=== PATIENT | male | born 1950 | race Caucasian/White ===

== ENCOUNTER 2016-06-19 08:21 | Outpatient (CLI) | payer MEDICARE ==
[~2016-06-19] VITALS: Ht 170.2 cm; Wt 99.8 kg
--- OUTSIDE RECORDS SUMMARY | 2016-06-19 08:24 | XMS REPORT | Continuity of Care Document ---
Author Author [facility] Organization [facility] Address Unknown Phone Unavailable Allergies Active Description Code Type Severity Reaction Onset Reported/Identified Relationship to Patient Clinical Status Yes No Known Drug Allergies [id number] Drug Allergy Unknown N/ A 03/20/2011 Medications Problems Date Dx Coded Attending Type Code Diagnosis Diagnosed By 09/29/2013 NE RUEDA MD Ot 278.00 OBESITY, NOS 09/29/2013 NE RUEDA MD Ot 719.41 JOINT PAIN-SHLDER 09/29/2013 NE RUEDA MD Ot 721.0 CERVICAL SPONDYLOSIS 09/29/2013 NE RUEDA MD Ot 721.3 LUMBOSACRAL SPONDYLOSIS 09/29/2013 NE RUEDA MD Ot 722.52 LUMB/LUMBOSAC DISC DEGEN 09/29/2013 NE RUEDA MD Ot V58.69 OTH MED,LT,CURRENT USE 09/29/2013 NE RUEDA MD Ot V85.33 BODY MASS INDEX 33.0-33.9, ADULT 06/28/2014 NE RUEDA MD Ot 724.2 09/06/2014 NADJA SHARIF MD Ot 723.1 09/06/2014 NE RUEDA MD Ot 721.0 09/06/2014 NE RUEDA MD Ot 721.3 09/06/2014 NE RUEDA MD Ot 722.4 09/06/2014 NE RUEDA MD Ot 722.52 09/06/2014 NE RUEDA MD Ot 729.1 09/06/2014 NE RUEDA MD Ot V58.69 09/06/2014 NE RUEDA MD Ot 724.2 09/26/2014 NE RUEDA MD Ot 719.46 10/08/2014 NE RUEDA MD Ot 719.46 02/22/2015 NE RUEDA MD Ot M47.812 SPONDYLOSIS W/O MYELOPATHY OR RADICULOPA 02/22/2015 NE RUEDA MD Ot M47.816 SPONDYLOSIS W/O MYELOPATHY OR RADICULOPA 06/27/2015 NADJA SHARIF MD Ot J32.9 06/27/2015 NADJA SHARIF MD Ot R42 06/27/2015 NADJA SHARIF MD Ot R51 07/08/2015 NADJA SHARIF MD Ot J32.9 07/08/2015 NADJA SHARIF MD Ot R42 07/08/2015 NADJA SHARIF MD Ot R51 01/03/2016 NADJA SHARIF MD Ot 723.1 CERVICALGIA 01/03/2016 NE RUEDA MD Ot 721.0 CERVICAL SPONDYLOSIS 01/03/2016 NE RUEDA MD Ot 721.3 LUMBOSACRAL SPONDYLOSIS 01/03/2016 NE RUEDA MD Ot 722.4 CERVICAL DISC DEGEN 01/03/2016 NE RUEDA MD Ot 722.52 LUMB/LUMBOSAC DISC DEGEN 01/03/2016 NE RUEDA MD Ot 729.1 MYALGIA AND MYOSITIS NOS 01/03/2016 NE RUEDA MD Ot V58.69 OTH MED,LT,CURRENT USE 01/03/2016 NE RUEDA MD Ot 724.2 LUMBAGO 01/03/2016 NE RUEDA MD Ot 719.46 JOINT PAIN-L/LEG 01/03/2016 NADJA SHARIF MD Ot J32.9 CHRONIC SINUSITIS, UNSPECIFIED 01/03/2016 NADJA SHARIF MD Ot R42 DIZZINESS AND GIDDINESS 01/03/2016 NADJA SHARIF MD Ot R51 HEADACHE 01/03/2016 NE RUEDA MD Ot M47.812 SPONDYLOSIS W/O MYELOPATHY OR RADICULOPA 01/03/2016 NE RUEDA MD Ot M47.816 SPONDYLOSIS W/O MYELOPATHY OR RADICULOPA 01/03/2016 NE RUEDA MD Ot Z79.899 OTHER RESIDENTIAL (CURRENT) DRUG THERAPY 01/16/2016 NE RUEDA MD Ot M47.812 SPONDYLOSIS W/O MYELOPATHY OR RADICULOPA 01/16/2016 NE RUEDA MD Ot M47.816 SPONDYLOSIS W/O MYELOPATHY OR RADICULOPA 01/16/2016 NE RUEDA MD Ot Z79.899 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 Visit Date/Time Discharge Status Pt. Type Provider Facility Loc./Unit Complaint [id number] 01/03/2016 06:51:00 2015 07:47:00 DIS Outpatient NE RUEDA MD [facility] CARD SPONDYLOSIS W/O MYELOPATHY OR RADICULOPATHY LUMBAR [id number] 02/22/2015 07:41:00 2014 08:21:00 DIS Outpatient NE RUEDA MD [facility] SPONDYLOSIS W/O MYELOPATHY OR RADICULOPATHY LUMBAR [id number] 09/06/2014 11:41:00 2014 23:59:59 CLS Outpatient NE RUEDA MD [facility] RAD L KNEE PAIN [id number] 09/29/2013 07:42:00 2013 08:33:00 DIS Outpatient NE RUEDA MD [facility] LUMBAR SPONDYLOSIS [id number] 09/26/2013 09:44:00 2013 23:59:59 CLS Outpatient NE RUEDA MD [facility] RAD LUMBAGO [id number] 06/16/2013 07:59:00 2013 23:59:59 CLS Outpatient NE RUEDA MD [facility] CARD CERVICAL DDD [id number] 05/09/2013 08:57:00 2013 23:59:59 CLS Outpatient NADJA SHARIF MD [facility] RAD NECK PAIN, NUMBNESS TINGLING LT HAND [id number] 06/19/2016 08:21:00 ACT Outpatient NE RUEDA MD [facility] CARD SPONDYLOSIS [id number] 06/07/2015 07:16:00 ACT Outpatient NADJA SHARIF MD [facility] RAD HEADACHES,DIZZINESS,NECK PAIN
[2016-06-19] MEDS ORDERED: TRIAMCINOLONE ACET (KENALOG-40) 40 MG/ML 1 ML VIAL ONE (08:55)
[2016-06-19] MEDS ORDERED: BUPIVACAINE 0.5% 30 ML (SENSORCAINE) VIAL ONE (08:55)
[2016-06-19] MEDS ORDERED: LIDOCAINE 1% INJ 20 ML (XYLOCAINE) VIAL ONE (08:55)
[2016-06-19 09:01] VITALS: BP 182/92
[2016-06-19 09:46] VITALS: BP 189/104
--- NOTE | 2016-06-19 11:58 | Pain Medicine-Procedure ---
Procedure Pre-Op/Post-Op Diagnosis Diagnosis: spondylosis without myelopathy, lumbar Indications for Operation Low back pain Attending Surgeon Jay Procedure Date of Service: Jun 19, 2016 Procedure: Fluoroscopic guided left Medial Branch Block of L3 to sacral ala PROCEDURE IN DETAIL: After obtaining informed consent from the patient, the patient's chart was reviewed. The patient was then brought to the procedure room and placed in the prone position. A time out was performed. The back was prepped with antiseptic solution and under fluoroscopic guidance the patient's sacral ala on the left side was identified. 2 mL's of 1% Lidocaine was used to anesthetized the skin over the sacral ala and a 22 gauge 3.5 inch needle was advanced towards the target until bone was contacted. The junction of the superior articular processes and the transverse processes at L3-L5 on the left were then identified and the skin overlying these targets was anesthetized with 1% lidocaine. Next a 22 gauge 3.5 inch needle was inserted through the skin to the level of the lumbar medial branches under radiographic guidance. Next, after negative aspiration, a mixture of 2 mL's Bupivacaine 0.5% and 80 mg Kenalog was injected in 4 equal aliquots. CSF was negative, Paresthesia was negative, Heme was negative. All needles were then flushed with 1% lidocaine and then removed. Band-Aids were applied to all the sites and the patient tolerated the procedure well and was taken to the recovery area in stable condition. Patient was discharged to home in stable condition with no new neurologic deficits. Complications None NE RUEDA MD Jun 19, 2016 11:58 am
== END 2016-06-19 09:49 | disposition home or self-care (01) ==
LOC: CARD 08:21
PROVIDERS: ATTEND Pain Medicine Pain Medicine
DX: M47.816 Spondylosis without myelopathy or radiculopathy, lumbar region (principal); Z79.899 Other long term (current) drug therapy
CPT/HCPCS: 64493; 64494; 64495

== ENCOUNTER 2017-01-07 12:36 | Outpatient (CLI) | payer MEDICARE ==
[~2017-01-07] VITALS: Ht 172.7 cm; Wt 99.8 kg
[2017-01-07] MEDS ORDERED: methylPREDNISolone 80 MG/ML (DEPO MEDROL) VIAL ONE (12:42)
[2017-01-07 13:00] VITALS: BP 162/106
[2017-01-07] MEDS ORDERED: TRIAMCINOLONE ACET (KENALOG-40) 40 MG/ML 1 ML VIAL IM ONE (13:30)
[2017-01-07] MEDS ORDERED: BUPIVACAINE 0.25% 30 ML (SENSORCAINE) VIAL INJ ONE (13:30)
[2017-01-07 13:49] VITALS: BP 168/90
--- NOTE | 2017-01-14 17:51 | OPERATIVE REPORT ---
DATE OF SERVICE: 01/07/2017 DIAGNOSIS: Lumbar spondylosis. PROCEDURE: Fluoroscopic-guided facet medial branch block L5-S1, left-sided. PROCEDURE IN DETAIL: After obtaining informed consent from the patient, the patient's chart was reviewed. The patient was then brought to the procedure room and placed in prone position. Time-out was performed. The area and the left neck, upper back, lower back was prepped with antiseptic solution and under fluoroscopic guidance, the patient's L5-S1 area was examined and the facet joints listed above were identified. L5-S1 was identified under fluoroscopy. A 22-guage 3-1/2 inch spinal needle was inserted and advanced under fluoroscopy down to the area where the pedicle and the transverse process meet and approximately 1 mL of 1% lidocaine was injected at this level. This was then repeated for the remainder of the levels stated above. Afterwards, the needle was removed. Band-Aids were applied to all sites and the patient tolerated the procedure well and was taken to the recovery area in stable condition. COMPLICATIONS: None. Job ID: [id number] DocumentID: [id number] Dictated Date: 01/12/2017 13:15:19 A Auxiliary Date: 01/13/2017 05:11:04 Dictated By: SHREE BACA DO
--- NOTE | 2017-01-19 15:32 | OPERATIVE REPORT ---
DATE OF SERVICE: 01/07/2017 DIAGNOSIS: Lumbar spondylosis. PROCEDURE: Fluoroscopic-guided facet medial branch block on the left side L3 through S1.. PROCEDURE IN DETAIL: After obtaining informed consent from the patient, the patient's chart was reviewed. The patient was then brought to the procedure room and placed in prone position. Time-out was performed. The area and the neck, upper back, lower back was prepped with antiseptic solution and under fluoroscopic guidance, the patient's left side L3 through S1 area was examined and the facet joints listed above were identified. Left side L3 through S1 was identified under fluoroscopy. A 22-gauge 3-1/2 inch spinal needle was inserted and advanced under fluoroscopy down to the area where the pedicle and the transverse process meet and approximately 1 mL of 1% lidocaine was injected at this level. This was then repeated for the remainder of the levels stated above. Afterwards, the needle was removed. Band-Aids were applied to all sites and the patient tolerated the procedure well and was taken to the recovery area in stable condition. COMPLICATIONS: None. (00:58) facet joint nerve block on the left side L3 through S1. Job ID: [id number] DocumentID: [id number] Dictated Date: 01/12/2017 13:13:56 Weighmaster Date: 01/14/2017 13:34:15 Dictated By: SHREE BACA DO
== END 2017-01-07 13:50 ==
LOC: CARD 12:36
PROVIDERS: ATTEND Pain Medicine Interventional Pain Medicine
DX: M54.16 Radiculopathy, lumbar region (principal); G89.4 Chronic pain syndrome
CPT/HCPCS: 62323

== ENCOUNTER → 2017-10-18 | Outpatient (CLI) | payer MEDICARE, OTHER ==
[~2017-10-18] MED LIST: IOHEXOL 350 MG/ML 100 ML (OMNIPAQUE 350) VIAL IV ONE; NS 250 ML (IVPB) BAG IV ONE
--- NOTE | 2017-10-18 14:41 | Diagnostic Imaging Report ---
PROCEDURE: CT chest with contrast only. TECHNIQUE: Multiple contiguous axial images were obtained through the chest after administration of intravenous contrast. INDICATION: Persistent cough and asbestos exposure. COMPARISON: No prior CT chest is available for comparison. FINDINGS: No axillary lymphadenopathy is identified. No definite mediastinal or hilar lymphadenopathy is seen. No pericardial or pleural fluid is seen. No definite pleural thickening, pleural-based mass, or calcified pleural plaquing is seen to suggest asbestos-related pleural disease. The central airways are unremarkable. Parenchymal evaluation demonstrates a tiny subpleural nodule in the superior segment of the left lower lobe, image 31, measuring 3 mm. There is calcified granuloma in the right lower lobe. No parenchymal mass or infiltrate is seen. The upper abdomen demonstrates generalized low density throughout the liver, suggestive of hepatic steatosis. The bony structures are unremarkable. IMPRESSION: Essentially unremarkable CT of the chest. No parenchymal mass or thoracic lymphadenopathy is seen. No definite asbestos-related pleural findings are identified. Dictated by: Dictated on workstation # [id number]
== END ==
LOC: RAD 13:25
PROVIDERS: ATTEND Family Medicine
DX: R05 Cough (principal); Z77.090 Contact with and (suspected) exposure to asbestos
CPT/HCPCS: 71260

== ENCOUNTER → 2020-06-17 | Outpatient (CLI) | payer MEDICARE, OTHER ==
--- NOTE | 2020-06-17 14:02 | Diagnostic Imaging Report ---
PROCEDURE: CT sinuses without contrast TECHNIQUE: Multiple contiguous axial images were obtained through the sinuses without the use of intravenous contrast. Coronal and sagittal reformations were then performed. Auto Exposure Controls were utilized during the CT exam to meet ALARA standards for radiation dose reduction. INDICATION: Chronic sinusitis. FINDINGS: There is moderate mucosal thickening in the left maxillary sinus. The right maxillary sinus is clear. The sphenoid sinus is clear. The ethmoid air cells are clear. The frontal sinus is clear. The ostiomeatal complexes are widely patent. There is some tortuosity of the nasal septum. There are no marii bullosa. The mastoid air cells are clear. The nasopharyngeal soft tissues are symmetrical without mass effect. The parotid glands are unremarkable. IMPRESSION: Mucosal thickening in the left maxillary sinus; otherwise, unremarkable. Dictated by: Dictated on workstation # [id number]
== END ==
LOC: RAD 13:20
PROVIDERS: ATTEND Otolaryngology Otolaryngology/Facial Plastic Surgery
DX: J34.89 Other specified disorders of nose and nasal sinuses (principal); J32.9 Chronic sinusitis, unspecified
CPT/HCPCS: 70486

== ENCOUNTER 2021-05-18 13:45 | Emergency (ER) | payer MEDICARE, OTHER ==
[~2021-05-18] VITALS: Ht 170 cm; Wt 81.8 kg
[2021-05-18] MEDS ORDERED: fentaNYL INJ 100 MCG/2 ML AMP IVP STA (14:26)
[2021-05-18] MEDS ORDERED: TETANUS,DIPTH,PERTUSS P/F (BOOSTRIX) 0.5 ML VIAL IM ONE (14:30)
[2021-05-18 14:50] LABS: BASOPHILS # (AUTO) 0.1 10^3/uL (0.0-0.1); BASOPHILS % (AUTO) 1 % (0-10); EOSINOPHILS # (AUTO) 0.2 10^3/uL (0.0-0.3); EOSINOPHILS % (AUTO) 2 % (0-10); HEMATOCRIT 43 % (40-54); HEMOGLOBIN 14.4 g/dL (13.3-17.7); LYMPHOCYTES # (AUTO) 2.1 10^3/uL (1.0-4.0); LYMPHOCYTES % (AUTO) 22 % (12-44); MEAN CORPUSCULAR HEMOGLOBIN 30 pg (25-34); MEAN CORPUSCULAR HGB CONC 34 g/dL (32-36); MEAN CORPUSCULAR VOLUME 89 fL (80-99); MEAN PLATELET VOLUME 10.2 fL (9.0-12.2); MONOCYTES # (AUTO) 0.8 10^3/uL (0.0-1.0); MONOCYTES % (AUTO) 9 % (0-12); NEUTROPHILS # (AUTO) 6.1 10^3/uL (1.8-7.8); NEUTROPHILS % (AUTO) 66 % (42-75); PLATELET COUNT 208 10^3/uL (130-400); WHITE BLOOD COUNT 9.3 10^3/uL (4.3-11.0)
[2021-05-18 15:00] LABS: ALBUMIN 4.1 GM/DL (3.2-4.5)
[2021-05-18 15:01] LABS: POTASSIUM 3.9 MMOL/L (3.6-5.0)
[2021-05-18 15:02] LABS: CALCIUM 8.9 MG/DL (8.5-10.1)
[2021-05-18 15:03] LABS: TOTAL PROTEIN 7.4 GM/DL (6.4-8.2)
[2021-05-18 15:05] LABS: BILIRUBIN,TOTAL 0.5 MG/DL (0.1-1.0)
[2021-05-18 15:07] LABS: CREATININE SERUM 0.82 MG/DL (0.60-1.30)
[2021-05-18] MEDS ORDERED: HYDROmorphone 2 MG/ML VIAL (DILAUDID) IV STA (15:27)
[2021-05-18] MEDS ORDERED: ONDANSETRON 4 MG/2 ML (SDV) Z0FRAN IVP STA (15:50)
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
[2021-05-18] MEDS ORDERED: ceFAZolin 2 GM IV Premixed 50 ML IV STA (16:10)
--- NOTE | 2021-05-18 16:10 | ED General ---
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 HAVING DOUBLE VISION. (MARCELLE STRICKLAND) History of Present Illness Date Seen by Provider: May 18, 2021 Time Seen by Provider: 14:10 Initial Comments 70 year old male was hit by branch, while assisting his family with trees. He reports being hit on the left side of the face, knocking him to the ground. No LOC. Denies n/v. Reports changes in vision to left eye, blurry at times. Chronic history of neck and back pain, no change in those symptoms. He arrived via private car. Unsure of last tetanus. No difficulty breathing, can use both nares. Has fentanyl patch on for the chronic pain, applied yesterday. Timing/Duration: 1 Hour Modifying Factors: improves with Rest (MARCELLE STRICKLAND) Allergies and Home Medications Allergies Coded Allergies: No Known Drug Allergies (Unverified , 03/20/11) Patient Home Medication List Home Medication List Reviewed: Yes (MARCELLE STRICKLAND) Review of Systems Review of Systems Constitutional: no symptoms reported, see HPI EENTM: see HPI, eye pain (left), nose pain, other (multiple abrasions to left face and eye, superficial); No vision loss, No dental problems, No mouth pain, No mouth swelling, No epistaxis, No nose congestion, No throat pain, No throat swelling Respiratory: no symptoms reported, see HPI Cardiovascular: no symptoms reported, see HPI Gastrointestinal: no symptoms reported, see HPI (MARCELLE STRICKLAND) All Other Systems Reviewed Negative Unless Noted: Yes (MARCELLE STRICKLAND) Past Ugraain-Hewuce-Wjiktu Hx Patient Social History Tobacco Use?: No Substance use?: No Pt feels they are or have been: No (MARCELLE STRICKLAND) Immunizations Up To Date First/Initial COVID19 Vaccinat: 06/01 Second COVID19 Vaccination Mina: 06/27 COVID19 Vaccine Searchlight Operator: LI (MARCELLE STRICKLAND) Family Medical History Reviewed Nursing Family Hx (MARCELLE STRICKLAND) Physical Exam Vital Signs Vital Signs - First Documented 05/18/21 05/18/21 14:03 17:40 Temp 36.4 Pulse 66 Resp 18 B/P (MAP) 198/88 (124) Pulse Ox 98 O2 Delivery Room Air (JULIO C DUENAS MD) Vital Signs Capillary Refill : Less Than 3 Seconds (MARCELLE STRICKLAND) Height, Weight, BMI Height: 5'8.00" Weight: 220lbs. 0.0oz. 99.520575hm; 28.00 BMI Method: General Appearance: WD/WN, Moderate Distress Eyes: Left Eye Lid Inflammation, Left Eye Other (trace erythema to conjunctiva, no hyphema); Bilateral Eye PERRL, Bilateral Eye EOMI HEENT: PERRL/EOMI, TMs Normal, Pharynx Normal, Moist Mucous Membranes Neck: Full Range of Motion, Normal Inspection, Non Tender, Supple Respiratory: Chest Non Tender, Lungs Clear, Normal Breath Sounds Cardiovascular: Regular Rate, Rhythm, No JVD, No Murmur, Normal Peripheral Pulses Gastrointestinal: Normal Bowel Sounds, Non Tender, Soft Extremity: Normal Capillary Refill, Normal Inspection, Normal Range of Motion, No Calf Tenderness, No Pedal Edema Neurologic/Psychiatric: Alert, Oriented x3, No Motor/Sensory Deficits, Normal Mood/Affect, slab stripper II-XII Norm as Tested Skin: Normal Color, Warm/Dry (MARCELLE STRICKLAND) Progress/Results/Core Measures Suspected Sepsis SIRS Temperature: Pulse: 66 Respiratory Rate: 18 Laboratory Tests 05/18/21 14:40: White Blood Count 9.3 Blood Pressure 198 /88 Mean: 124 Laboratory Tests 05/18/21 14:40: Creatinine 0.82, Platelet Count 208, Total Bilirubin 0.5 (MARCELLE STRICKLAND) Results/Orders Lab Results Laboratory Tests Test 05/18/21 14:40 Range/Units White Blood Count 9.3 4.3-11.0 10^3/uL Red Blood Count 4.80 4.30-5.52 10^6/uL Hemoglobin 14.4 13.3-17.7 g/dL Hematocrit 43 40-54 % Mean Corpuscular Volume 89 80-99 fL Mean Corpuscular Hemoglobin 30 25-34 pg Mean Corpuscular Hemoglobin Concent 34 32-36 g/dL Red Cell Distribution Width 12.6 10.0-14.5 % Platelet Count 208 130-400 10^3/uL Mean Platelet Volume 10.2 9.0-12.2 fL Immature Granulocyte % (Auto) 0 % Neutrophils (%) (Auto) 66 42-75 % Lymphocytes (%) (Auto) 22 12-44 % Monocytes (%) (Auto) 9 0-12 % Eosinophils (%) (Auto) 2 0-10 % Basophils (%) (Auto) 1 0-10 % Neutrophils # (Auto) 6.1 1.8-7.8 10^3/uL Lymphocytes # (Auto) 2.1 1.0-4.0 10^3/uL Monocytes # (Auto) 0.8 0.0-1.0 10^3/uL Eosinophils # (Auto) 0.2 0.0-0.3 10^3/uL Basophils # (Auto) 0.1 0.0-0.1 10^3/uL Immature Granulocyte # (Auto) 0.0 0.0-0.1 10^3/uL Sodium Level 140 135-145 MMOL/L Potassium Level 3.9 3.6-5.0 MMOL/L Chloride Level 104 98-107 MMOL/L Carbon Dioxide Level 23 21-32 MMOL/L Anion Gap 13 5-14 MMOL/L Blood Urea Nitrogen 13 7-18 MG/DL Creatinine 0.82 0.60-1.30 MG/DL Estimat Glomerular Filtration Rate 95 BUN/Creatinine Ratio 16 Glucose Level 101 70-105 MG/DL Calcium Level 8.9 8.5-10.1 MG/DL Corrected Calcium 8.8 8.5-10.1 MG/DL Total Bilirubin 0.5 0.1-1.0 MG/DL Aspartate Amino Transf (AST/SGOT) 33 5-34 U/L Alanine Aminotransferase (ALT/SGPT) 20 0-55 U/L Alkaline Phosphatase 60 40-136 U/L Total Protein 7.4 6.4-8.2 GM/DL Albumin 4.1 3.2-4.5 GM/DL (JULIO C DUENAS MD) Medications Given in ED Current Medications Medications Dose Ordered Sig/Keshawn Route Start Time Stop Time Status Last Admin Dose Admin Diphtheria/ Tetanus/Acell Pertussis 0.5 ml ONCE ONCE IM 05/18/21 14:30 05/18/21 14:31 DC 05/18/21 14:49 0.5 ML Oxycodone/ Acetaminophen 1 ea Q4H PRN PO 05/18/21 17:30 2/13/22 17:49 DC 05/18/21 17:35 1 EA (JULIO C DUENAS MD) Vital Signs/I&O 05/18/21 05/18/21 14:03 17:40 Temp 36.4 Pulse 66 52 Resp 18 18 B/P (MAP) 198/88 (124) 200/90 Pulse Ox 98 96 O2 Delivery Room Air (JULIO C DUENAS MD) Vital Signs/I&O Capillary Refill : Less Than 3 Seconds (MARCELLE STRICKLAND) Blood Pressure Mean: 124 Progress Note : Time: 14:10 Progress Note patient seen and evaluated, will give Dilaudid for pain and tetanus booster. Ice to face and eye on left. 1500 CT shows multiple orbital and nasal fractures. Continues to have slightly blurry vision but no vision loss. EOMI, but with some discomfort on the left eye. Dr. Wilson, trauma doctor notified of patient. [address] Damon, willing to see patient for fractures but would like him evaluated by Opthamology. Zofran 8 mg IV for nausea. [address] Lopez at [place], willing to see patient but wants to assure fracture management is planned with ENT or Dr. Damon. Patient would prefer to see Opthamology and ENT at [place]. 1615 noted subconjunctival hemorrhage on the left eye, no hyphema developing over the pupil. Significant swelling of the left eye and cheek. Continues to have slight blurred vision on the left but otherwise intact. Patient can move the eye in all directions but with some pain with superior motion. PERRL. [address] Herrera ENT, patient can be seen at her office, have patient call tomorrow. [address] Lopez, will see at his office in [place] for eye exam at [address] Wilson agreeable with plan of care. 1730 discharge instructions and plan of care discussed with the patient and his they are agreeable with this and will see Dr. Lopez immediately at his office in [place]. Copies of ED reports sent with patient for Dr. Lopez. CT of head and maxiofacial clouded to [place]. (MARCELLE STRICKLAND) Diagnostic Imaging Diagonstic Imaging: CT Plain Films/CT/US/NM/MRI: facial bones, head Comments NAME: DANIELA CASTRO [facility] REC#: [id number] PT STATUS: REG ER : 1950 PHYSICIAN: MARCELLE STRICKLAND ADMIT DATE: 05/18/21/ER Draft Date of Exam:05/18/21 CT HEAD/MAXILLOFACIAL WO PROCEDURE: CT head and maxillofacial without contrast. TECHNIQUE: Multiple contiguous axial images were obtained through the head and facial bones without the use of intravenous contrast. Auto Exposure Controls were utilized during the CT exam to meet ALARA standards for radiation dose reduction. INDICATION: Trauma, hit in face, pain. COMPARISON: 06/17/2020 and 06/07/2015. FINDINGS: Mild atrophy. No intracranial hemorrhage. No intracranial mass, mass effect, midline shift, herniation, hydrocephalus or extra-axial fluid collection. Mild background chronic small vessel white matter ischemic disease. No definite CT evidence of an acute ischemic infarction. Acute appearing bilateral nasal bone fractures, minimally displaced and angulated, particularly on the left. Minimal fracturing of the left lamina papyracea. The right lamina papyracea appears intact. Mild partial opacification of some left ethmoidal air cells. Fracturing of the lateral wall of the left orbit is identified. Fracturing of the left inferior orbital rim and orbital floor is noted. Inferior displacement of some fracture fragments into the left maxillary sinus is noted. This is associated with soft tissue gas within the left orbit. The inferior left rectus musculature does not extend into the left maxillary sinus. Comminuted fracturing of the left zygomatic arch, not significantly displaced. Acute comminuted and depressed fracturing involving the anterior and lateral wall of the left maxillary sinus. Near-complete opacification of the left maxillary sinus is noted with associated hyperdense contents. Fracturing involving the medial wall of the left maxillary sinus. Rightward nasal septal deviation. No temporomandibular joint dislocation. Visualized portions of the pterygoids are intact. Degenerative changes within the cervical spine. Left-sided exophthalmus. Left periorbital soft tissue swelling. Several small hyperdensities are identified anterior and inferior to the left globe. IMPRESSION: Extensive left-sided facial fractures, as described above, including the lateral and inferior orbital peralta as well as all peralta of the left maxillary sinus and the left zygomatic arch. No definite musculature from the left orbit extending to the left maxillary sinus. No acute intracranial abnormality. Left-sided exophthalmus secondary to the hematoma and soft tissue gas within the left orbit. Tiny hyperdensities anterior and inferior to the left globe. Recommend direct visualization for tiny superficial foreign bodies. Bilateral nasal bone fractures. Dictated on workstation # [id number] Dict: 05/18/21 1534 Trans: 05/18/21 1559 [facility] [id number] Interpreted by: MAXINE PEREZ MD Electronically signed by: Reviewed: Reviewed by Me (MARCELLE STRICKLAND) Departure Impression Primary Impression: Facial trauma Qualified Codes: S09.93XA - Unspecified injury of face, initial encounter Additional Impressions: Orbital fracture Qualified Codes: S02.85XB - Fracture of orbit, unspecified, initial encounte r for open fracture Zygomatic fracture, left side, initial encounter for closed fracture Subconjunctival hemorrhage of left eye Disposition: HOME, SELF-CARE Condition: Critical Departure-Patient Inst. Decision time for Depature: 17:00 (MARCELLE STRICKLAND) Referrals: SABRINA ANN MD (PCP/Family) Primary Care Physician Add. Discharge Instructions: Leave dressing in place, go to [address] [place] [address], across from [facility]. It is the [facility], it has a video screen on the building. Dr. Lopez will be there to see you at 6:15 PM on the East door. It is a 2 story stone building. Rest, no aggressive activity. On Wednesday call Dr. Herrera's office at [phone] for an appointment. Use Pain medication, as prescribed. Take Zofran for nausea/vomiting. Follow up per Dr. Herrera and Dr. Lopez. All discharge instructions reviewed with patient and/or family. Voiced understanding. ATTENDING PHYSICIAN NOTE: I was physically present as attending physician in the emergency department during the care of this patient. I discussed the case in brief with Marcelle STRICKLAND NP. I agree with the pursuit of specialty consultation with ENT and/or maxillofacial surgery. I was not otherwise directly involved in the decision making or delivery of care for this patient. (JULIO C DUENAS MD) Copy Copies To 1: SABRINA ANN MD, AMY ARNP May 18, 2021 16:10 JULIO C DUENAS MD May 18, 2021 19:38
[2021-05-18] MEDS ORDERED: HYDROmorphone 2 MG/ML VIAL (DILAUDID) IVP STA (16:26)
[2021-05-18] MEDS ORDERED: morphine INJ 4 MG/ML 1 ML (VIAL/SYRINGE) IVP STA (17:21)
[2021-05-18] MEDS ORDERED: RX-ONDANSETRON 4 MG ODT (ZOFRAN) PPK #4 PO STA (17:21)
[2021-05-18] MEDS ORDERED: morphine INJ 10 MG/ML 1ML (SYR OR VIAL) IVP STA (17:27)
[2021-05-18] MEDS ORDERED: RX-OXYCODONE/APAP 5-325 MG #4 TAB PK PO PRN (17:30)
[2021-05-18 17:40] VITALS: BP 200/90
== END 2021-05-18 17:40 | disposition home or self-care (01) ==
LOC: EDUNIT# 13:45 → ER 13:48
DX: S02.85XA Fracture of orbit, unspecified, initial encounter for closed fracture (principal); S02.40FA Zygomatic fracture, left side, initial encounter for closed fracture; H11.32 Conjunctival hemorrhage, left eye; Z23 Encounter for immunization; W22.8XXA Striking against or struck by other objects, initial encounter
CPT/HCPCS: 36415; 70450; 70486; 80053; 85025; 90715

== ENCOUNTER 2022-05-30 15:28 | Inpatient (IN) | payer MEDICARE, OTHER ==
[~2022-05-30] VITALS: Ht 170.2 cm; Wt 81.8 kg
--- NOTE | 2022-05-30 16:15 | ED General ---
General Chief Complaint: General Problems/Pain Stated Complaint: LOWER BACK PAIN | LEG PAIN | RETAINING FLUID Nursing Triage Note: PT IS SCHEDULED WEDNESDAY FOR AN ECHO, CC OF FLUID RETENTION AND LOW BACK PAIN, PAIN IN LEGS AND HIPS,HAS SPINAL STEONSIS. Source of Information: Patient Exam Limitations: No Limitations History of Present Illness Date Seen by Provider: May 30, 2022 Time Seen by Provider: 15:35 Initial Comments Here with report of significant low back pain and pain in his legs. Does have history of spinal stenosis and fluid retention. He is currently on Bumex 1 mg daily and he is getting worse fluid retention. He is on fentanyl patch 75 mcg every 3 days as well as breakthrough hydrocodone tablets and that is not helping. He arrives with his who helps care for him. Patient does have Parkinson's disease. She states that he has had a terrible couple of days. He does follow with Dr. Ann and she reports that he has done labs recently but she is not sure of the results. She reports have not been called of anything significantly bad though. Patient does not have a history tutor. He does follow with pain control. She reports that he did get an injection in Dr. Ann's office the other day that did not help. She is worried about changing color of the patient's legs to more red and the increasing swelling. Patient reports he has swelling all the way up to the groin on both sides. Swelling is even bilateral. Denies chest pain or breathing problems. Denies fever or chills. reports the patient is scheduled for echocardiogram this coming week. Timing/Duration: 3-4 Days, Getting Worse Severity: Moderate Associated Systoms: No Chest Pain, No Cough, No Fever/Chills, No Nausea/Vomiting, No Shortness of Air; Weakness Allergies and Home Medications Allergies Coded Allergies: No Known Drug Allergies (Unverified , 03/20/11) Patient Home Medication List Home Medication List Reviewed: Yes Review of Systems Review of Systems Constitutional: see HPI; No fever EENTM: No nose congestion, No throat pain Respiratory: cough; No short of breath Cardiovascular: No chest pain; edema Gastrointestinal: No abdominal pain, No nausea, No vomiting Genitourinary: no symptoms reported Musculoskeletal: back pain, joint pain, muscle pain Skin: change in color; No lesions Psychiatric/Neurological: Denies Numbness; Weakness Past Fgewwjk-Pcfwlz-Opemba Hx Patient Social History Tobacco Use?: No Substance use?: No Alcohol Use?: No Immunizations Up To Date First/Initial COVID19 Vaccinat: 06/01 Second COVID19 Vaccination Mina: 06/27 Third COVID19 Vaccination Date: 01/24 Past Medical History Surgery/Hospitalization HX: SPINAL STENOSIS, FLUID RETENTION, PARKINSONS, FACIAL TRAUMA, NERVE ENDING IN BACK BURNED OFF Surgeries: Yes Orthopedic Respiratory: No Cardiac: Yes Chronic Edema/Swelling, Hypertension Neurological: Yes Neuropathy, Parkinson's Disease Musculoskeletal: Yes Back Injury, Chronic Back Pain Endocrine: No Hearing Impairment: Hard of Hearing Family Medical History Reviewed Nursing Family Hx No Pertinent Family Hx Physical Exam Vital Signs Vital Signs - First Documented 05/30/22 05/30/22 15:35 17:30 Temp 35.9 Pulse 95 Resp 20 B/P (MAP) 138/75 (96) Pulse Ox 99 O2 Delivery Room Air Capillary Refill : Less Than 3 Seconds Height, Weight, BMI Height: 5'8.00" Weight: 220lbs. 0.0oz. 99.236328in; 28.00 BMI Method: General Appearance: No Apparent Distress, WD/WN HEENT: PERRL/EOMI, Pharynx Normal Neck: Non Tender, Supple Respiratory: Lungs Clear, Normal Breath Sounds Cardiovascular: Regular Rate, Rhythm, No Murmur, Tachycardia Gastrointestinal: Non Tender, Soft Back: Decreased Range of Motion, Other (Bilateral lower back pain) Extremity: Pedal Edema (3+ up to groin bilateral), Other (Tender over all of both legs) Neurologic/Psychiatric: Alert, Oriented x3 Skin: Warm/Dry, Other (Redness and blanching to skin of legs bilateral up to level of groin) Focused Exam Lactate Level 05/30/22 16:00: Lactic Acid Level 2.91*H Lactic Acid Level Laboratory Tests Test 05/30/22 16:00 Lactic Acid Level 2.91 MMOL/L (0.50-2.00) *H Progress/Results/Core Measures Suspected Sepsis SIRS Temperature: Pulse: 95 Respiratory Rate: 20 Laboratory Tests 05/30/22 16:00: White Blood Count 12.5H Blood Pressure 138 /75 Mean: 96 05/30/22 16:00: Lactic Acid Level 2.91*H Laboratory Tests 05/30/22 16:00: Creatinine 1.18, Platelet Count 226, Total Bilirubin 0.6 Results/Orders Lab Results Laboratory Tests Test 05/30/22 16:00 Range/Units White Blood Count 12.5 H 4.3-11.0 10^3/uL Red Blood Count 4.03 L 4.30-5.52 10^6/uL Hemoglobin 11.9 L 13.3-17.7 g/dL Hematocrit 37 L 40-54 % Mean Corpuscular Volume 91 80-99 fL Mean Corpuscular Hemoglobin 30 25-34 pg Mean Corpuscular Hemoglobin Concent 32 32-36 g/dL Red Cell Distribution Width 12.4 10.0-14.5 % Platelet Count 226 130-400 10^3/uL Mean Platelet Volume 10.5 9.0-12.2 fL Immature Granulocyte % (Auto) 1 % Neutrophils (%) (Auto) 83 H 42-75 % Lymphocytes (%) (Auto) 7 L 12-44 % Monocytes (%) (Auto) 9 0-12 % Eosinophils (%) (Auto) 0 0-10 % Basophils (%) (Auto) 0 0-10 % Neutrophils # (Auto) 10.3 H 1.8-7.8 10^3/uL Lymphocytes # (Auto) 0.9 L 1.0-4.0 10^3/uL Monocytes # (Auto) 1.2 H 0.0-1.0 10^3/uL Eosinophils # (Auto) 0.0 0.0-0.3 10^3/uL Basophils # (Auto) 0.0 0.0-0.1 10^3/uL Immature Granulocyte # (Auto) 0.1 0.0-0.1 10^3/uL Neutrophils % (Manual) 86 % Lymphocytes % (Manual) 8 % Monocytes % (Manual) 4 % Basophils % (Manual) 2 % Platelet Estimate NORMAL Blood Morphology Comment NORMAL Sodium Level 136 135-145 MMOL/L Potassium Level 4.2 3.6-5.0 MMOL/L Chloride Level 98 98-107 MMOL/L Carbon Dioxide Level 24 21-32 MMOL/L Anion Gap 14 5-14 MMOL/L Blood Urea Nitrogen 34 H 7-18 MG/DL Creatinine 1.18 0.60-1.30 MG/DL Estimat Glomerular Filtration Rate 66 BUN/Creatinine Ratio 29 Glucose Level 156 H 70-105 MG/DL Lactic Acid Level 2.91 *H 0.50-2.00 MMOL/L Calcium Level 9.4 8.5-10.1 MG/DL Corrected Calcium 9.3 8.5-10.1 MG/DL Magnesium Level 2.0 1.6-2.4 MG/DL Total Bilirubin 0.6 0.1-1.0 MG/DL Aspartate Amino Transf (AST/SGOT) 18 5-34 U/L Alanine Aminotransferase (ALT/SGPT) 18 0-55 U/L Alkaline Phosphatase 72 40-136 U/L Troponin I < 0.028 <0.028 NG/ML C-Reactive Protein High Sensitivity 13.69 H 0.00-0.50 MG/DL B-Type Natriuretic Peptide 43.7 <100.0 PG/ML Total Protein 8.1 6.4-8.2 GM/DL Albumin 4.1 3.2-4.5 GM/DL Micro Results Microbiology 05/30/22 Blood Culture - Preliminary, Resulted No growth My Orders Orders - ARMANI MULLINS MD Cbc With Automated Diff (05/30/22 15:57) Comprehensive Metabolic Panel (05/30/22 15:57) Blood Culture (05/30/22 15:57) Urinalysis (05/30/22 15:57) Urine Culture (05/30/22 15:57) Chest 1 View, Ap/Pa Only (05/30/22 15:57) Ed Iv/Invasive Line Start (05/30/22 15:57) Troponin I Joe (05/30/22 15:57) O2 (05/30/22 15:57) Remove Rings In Anticipation O (05/30/22 15:57) Lactic Acid Analyzer (05/30/22 15:57) Bnp Evangeline (05/30/22 15:57) Hs C Reactive Protein (05/30/22 15:57) Magnesium (05/30/22 15:57) Manual Differential (05/30/22 16:00) Ekg Tracing (05/30/22 16:25) Hydromorphone Injection (Dilaudid Inject (05/30/22 16:30) Ceftriaxone 1 Gm Pre-Mix (Rocephin 1 Gm (05/30/22 17:19) Furosemide Injection (Lasix Injection) (05/30/22 17:20) Code/Resuscitation (2/25/23 17:41) Medications Given in ED Vital Signs/I&O 05/30/22 05/30/22 15:35 17:30 Temp 35.9 Pulse 95 84 Resp 20 18 B/P (MAP) 138/75 (96) 139/74 (95) Pulse Ox 99 O2 Delivery Room Air Capillary Refill : Less Than 3 Seconds Blood Pressure Mean: 96 Progress Note : Progress Note Seen and evaluated. IV, labs, blood cultures, lactic acid. Labs include CBC, CMP, troponin, BNP and CRP as well as magnesium. We will get chest x-ray and EKG. Monitor patient. Dilaudid 1 mg IV ordered. Differential includes cellulitis/sepsis, dependent edema, electrolyte abnormality, heart failure 1715: Chest x-ray shows no acute findings on my interpretation. See radiology report for details. Labs reviewed and CBC shows white count of 12.5 with slightly low hemoglobin of 11.9 and a left shift. CMP shows normal electrolytes and normal LFTs with glucose 156. Troponin and BNP are both negative. CRP is elevated at 13.69 with lactic acid of 2.91. I do believe patient likely has cellulitis of the legs. I did discuss the case with Dr. Novka, hospitalist on- call and she accepts patient for admission. She is recommending Rocephin 1 g IV now and daily. We will also initiate furosemide 40 mg IV now and twice daily. Admit, inpatient status. I will get cardiology consult. 173: I have paged cardiology on-call, Dr Friedman. Patient is doing much better with respect to pain. Admit, inpatient status. Patient requested DNR status. This was ordered. 1737: I did discuss the case with Dr Friedman. He is requesting 2D cardiac echo in the morning which was ordered. He will see the patient in consult tomorrow and agrees with furosemide dosing. ECG Initial ECG Impression Date: May 30, 2022 Initial ECG Impression Time: 16:40 Initial ECG Rate: 82 Initial ECG Rhythm: Normal Sinus Comment Sinus rhythm with leftward axis. No evidence of ST elevation [place]. Interpreted by me. Diagnostic Imaging Diagonstic Imaging: Xray Plain Films/CT/US/NM/MRI: chest Comments [facility] [place], [place] NAME: DANIELA CASTRO [facility] REC#: [id number] PT STATUS: REG ER : 1950 PHYSICIAN: ARMANI MULLINS MD ADMIT DATE: 05/30/22/ER Signed Date of Exam:05/30/22 CHEST 1 VIEW, AP/PA ONLY EXAMINATION: Chest 1 view. HISTORY: Congestion. Volume overload. COMPARISON: 10/18/2017. FINDINGS: The lung volumes are normal. No focal consolidation is seen. No large pleural effusion or pneumothorax is seen. The cardiomediastinal silhouette is normal in size and contour. No acute osseous abnormality is seen. IMPRESSION: No acute pleuroparenchymal process. Dictated by: Dictated on workstation # [id number] Dict: 05/30/22 1613 Trans: 05/30/22 1620 [facility] [id number] Interpreted by: IRENE FISHER DO Electronically signed by: IRENE FISHER DO 05/30/22 1620 Departure Communication (Admissions) Time/Spoke to Admitting Phy: 17:15 Time/Spoke to Consulting Phy: 17:37 Impression Primary Impression: Bilateral lower leg cellulitis Additional Impression: Dependent edema Disposition: ADMITTED INPATIENT Condition: Stable Admissions Decision to Admit Reason: Admit from ER (General) Decision to Admit/Date: May 30, 2022 Time/Decision to Admit Time: 17:15 Departure-Patient Inst. Referrals: SABRINA ANN MD (PCP/Family) Primary Care Physician ARMANI MULLINS MD May 30, 2022 16:15
[2022-05-30 16:16] LABS: BASOPHILS % (AUTO) 0 % (0-10); EOSINOPHILS % (AUTO) 0 % (0-10); HEMATOCRIT 37 % (40-54); HEMOGLOBIN 11.9 g/dL (13.3-17.7); LYMPHOCYTES # (AUTO) 0.9 10^3/uL (1.0-4.0); LYMPHOCYTES % (AUTO) 7 % (12-44); MEAN CORPUSCULAR HEMOGLOBIN 30 pg (25-34); MEAN CORPUSCULAR HGB CONC 32 g/dL (32-36); MEAN CORPUSCULAR VOLUME 91 fL (80-99); MEAN PLATELET VOLUME 10.5 fL (9.0-12.2); MONOCYTES # (AUTO) 1.2 10^3/uL (0.0-1.0); MONOCYTES % (AUTO) 9 % (0-12); NEUTROPHILS # (AUTO) 10.3 10^3/uL (1.8-7.8); NEUTROPHILS % (AUTO) 83 % (42-75); PLATELET COUNT 226 10^3/uL (130-400); WHITE BLOOD COUNT 12.5 10^3/uL (4.3-11.0)
--- NOTE | 2022-05-30 16:21 | Diagnostic Imaging Report ---
EXAMINATION: Chest 1 view. HISTORY: Congestion. Volume overload. COMPARISON: 10/18/2017. FINDINGS: The lung volumes are normal. No focal consolidation is seen. No large pleural effusion or pneumothorax is seen. The cardiomediastinal silhouette is normal in size and contour. No acute osseous abnormality is seen. IMPRESSION: No acute pleuroparenchymal process. Dictated by: Dictated on workstation # [id number]
[2022-05-30 16:29] LABS: ALBUMIN 4.1 GM/DL (3.2-4.5); CHLORIDE 98 MMOL/L (98-107); POTASSIUM 4.2 MMOL/L (3.6-5.0); SODIUM 136 MMOL/L (135-145)
[2022-05-30] MEDS ORDERED: HYDROmorphone 2 MG/ML VIAL (DILAUDID) IV ONE (16:30)
[2022-05-30 16:31] LABS: CALCIUM 9.4 MG/DL (8.5-10.1)
[2022-05-30 16:32] LABS: GLUCOSE 156 MG/DL (70-105); TOTAL PROTEIN 8.1 GM/DL (6.4-8.2)
[2022-05-30 16:33] LABS: BILIRUBIN,TOTAL 0.6 MG/DL (0.1-1.0); CARBON DIOXIDE 24 MMOL/L (21-32)
[2022-05-30 16:36] LABS: ALKALINE PHOSPHATASE 72 U/L (40-136); BUN/CREATININE RATIO 29; CREATININE SERUM 1.18 MG/DL (0.60-1.30); GFR ESTIMATED 66
[2022-05-30 16:38] LABS: ALANINE AMINOTRANSFERASE 18 U/L (0-55)
[2022-05-30 16:55] LABS: BASOPHILS % (MANUAL) 2 %; LYMPHOCYTES % (MANUAL) 8 %; MONOCYTES % (MANUAL) 4 %; NEUTROPHILS % (MANUAL) 86 %; PLATELET ESTIMATE NORMAL; RBC MORPH NORMAL
[2022-05-30] MEDS ORDERED: cefTRIAXone 1 GM PRE-MIX 50 ML IV STA (17:19)
[2022-05-30] MEDS ORDERED: FUROSEMIDE 40 MG/4 ML INJ (LASIX) IV STA (17:20)
[2022-05-30 18:03] LABS: BILIRUBIN,URINE NEGATIVE (NEGATIVE); CLARITY,URINE CLEAR; COLOR,URINE YELLOW; GLUCOSE, URINE (UA) NEGATIVE (NEGATIVE); KETONES,URINE NEGATIVE (NEGATIVE); LEUKOCYTE ESTERASE ,URINE NEGATIVE (NEGATIVE); NITRITE,URINE NEGATIVE (NEGATIVE); PROTEIN,URINE NEGATIVE (NEGATIVE)
[2022-05-30 18:15] LABS: BACTERIA,URINE FEW /HPF; RBC,URINE RARE /HPF
[2022-05-30 19:38] VITALS: BP 125/60
[2022-05-30] MEDS ORDERED: HYDROmorphone 2 MG/ML VIAL (DILAUDID) ONE (20:19)
[2022-05-30] MEDS: HYDROmorphone 2 MG/ML VIAL (DILAUDID) IV PRN (20:25)
[2022-05-30] MEDS ORDERED: FLEET ENEMA ADULT 1 EA BTL ONE (20:53)
[2022-05-30] MEDS: CATHETER FLUSH 10 ML SYR IVP SCH (21:10)
[2022-05-31] VITALS: BP 148/73
[2022-05-31] MEDS ORDERED: ACETAMINOPHEN 500 MG TAB (TYLENOL) PO PRN (01:00)
[2022-05-31] MEDS: HYDROmorphone 2 MG/ML VIAL (DILAUDID) IV PRN ×8 (01:59→23:00)
[2022-05-31 04:03] VITALS: BP 138/69
[2022-05-31 06:04] LABS: BASOPHILS # (AUTO) 0.1 10^3/uL (0.0-0.1); BASOPHILS % (AUTO) 1 % (0-10); EOSINOPHILS % (AUTO) 0 % (0-10); HEMATOCRIT 35 % (40-54); HEMOGLOBIN 11.4 g/dL (13.3-17.7); LYMPHOCYTES # (AUTO) 1.5 10^3/uL (1.0-4.0); LYMPHOCYTES % (AUTO) 15 % (12-44); MEAN CORPUSCULAR HEMOGLOBIN 30 pg (25-34); MEAN CORPUSCULAR HGB CONC 33 g/dL (32-36); MEAN CORPUSCULAR VOLUME 90 fL (80-99); MEAN PLATELET VOLUME 10.4 fL (9.0-12.2); MONOCYTES # (AUTO) 1.4 10^3/uL (0.0-1.0); MONOCYTES % (AUTO) 13 % (0-12); NEUTROPHILS # (AUTO) 7.4 10^3/uL (1.8-7.8); NEUTROPHILS % (AUTO) 71 % (42-75); PLATELET COUNT 187 10^3/uL (130-400); WHITE BLOOD COUNT 10.4 10^3/uL (4.3-11.0)
[2022-05-31] MEDS: CATHETER FLUSH 10 ML SYR IVP SCH ×3 (06:17→23:00)
[2022-05-31 06:20] LABS: CREATININE SERUM 0.98 MG/DL (0.60-1.30)
[2022-05-31 07:55] VITALS: BP 162/82
[2022-05-31] MEDS: FUROSEMIDE 40 MG/4 ML INJ (LASIX) IV SCH ×2 (07:59→20:43)
[2022-05-31] MEDS ORDERED: fentaNYL PATCH 75 MCG (DURAGESIC) TOP SCH (09:00)
[2022-05-31] MEDS ORDERED: ONDANSETRON 4 MG/2 ML (SDV) Z0FRAN IVP PRN (11:15)
[2022-05-31 12:15] VITALS: BP 127/66
--- NOTE | 2022-05-31 12:41 | History & Physical ---
History of Present Illness History of Present Illness Reason for visit/HPI Patient is a 71-year-old male with a history of Parkinson's, spinal stenosis, HTN, and fluid retention that presented to the Ed on 05/30 with chief complaint of b/l leg pain and swelling. Patient reports that he first noticed the swelling about 2 weeks ago, denies any trauma or other inciting events. He states that the swelling became progressively worse over the next few days and became inc reasingly painful. His symptoms initially began to improve after a couple days, but then progressively worsened and became erythematous. Patient was seen by his PCP on Wednesday, and was started on Bumex which the patient reports did not help with his symptoms. He reports that his pain has been so severe that he has not slept in two days and that the pain medications for his lower back have not helped the pain in his legs. On exam, there is b/l edema with a small amount of erythema extending up to the groin, worse in the lower legs. Patient reports that the erythema has improved from yesterday. The lower legs are firm on palpation which elicits mild tenderness. Patient reports that his pain is currently at a 10/10 and that his 75mcg fentanyl patch and 1g hydromorphone IV Q3H PRN do not touch his pain. Patient also reports that he has been having pain in his left knee during this episode, which the patient reports has given him pain in the past since tearing his meniscus. Patient also reports that he has some constipation this week requiring two enemas, but had a BM this morning. Patient has no other complaints at this time. Date of Admission May 30, 2022 at 17:56 Date Seen by a Provider: May 31, 2022 Time Seen by a Provider: 11:30 I consulted on this patient on 05/31/22 12:28 Attending Physician Brian Smith MD Admitting Physician Admitting Physician: Roxanna Novak MD Attending Physician: Roxanna Novak MD Consult Allergies and Home Medications Allergies Coded Allergies: No Known Drug Allergies (Unverified , 03/20/11) Patient Home Medication List Home Medication List Reviewed: Yes Past Dzerusm-Yjzsji-Gvlvii Hx Patient Social History Marrital Status: Tobacco Use?: No Smoking Status: Never a Smoker Use of E-Cig and/or Vaping dev: No Substance use?: No Alcohol Use?: No Pt feels they are or have been: No Immunizations Up To Date Date of Influenza Vaccine: Mar 20, 2010 First/Initial COVID19 Vaccinat: 06/01 Second COVID19 Vaccination Mina: 06/27 Tetanus Booster (TDap): More Than 5 Years Current Status Advance Directives: Yes Advance Directive Location: Home Communicates: Verbally Primary Language: Zimbabwean Preferred Spoken Language: Zimbabwean Is interpretation needed?: No Sensory deficits: Vision impairment Implanted or Applied Medical D: None Past Medical History Surgeries: Orthopedic Chronic Edema/Swelling, Hypertension Neuropathy, Parkinson's Disease Back Injury, Chronic Back Pain Hearing Impairment: Hard of Hearing Family Medical History Reviewed Nursing Family Hx No Pertinent Family Hx Review of Systems Constitutional: No chills; fever (Reports subjective fever last night) EENTM: double vision (reports double vision up close following facial trauma last year); No hearing loss Respiratory: No cough, No dyspnea on exertion, No short of breath Cardiovascular: No chest pain; edema Gastrointestinal: No abdominal pain; loss of appetite, nausea (reports mild nausea past week); No vomiting Genitourinary: other (difficulty initiating stream, chronic) Musculoskeletal: back pain (Lumbar), joint pain (L knee) Skin: change in color (Mild erythema b/l lower legs); No change in hair/nails Psychiatric/Neurological: Denies Numbness, Denies Tremors, Denies Weakness Physical Exam Vital Signs Vital Signs - First Documented 05/30/22 05/30/22 15:35 17:30 Temp 35.9 Pulse 95 Resp 20 B/P (MAP) 138/75 (96) Pulse Ox 99 O2 Delivery Room Air Capillary Refill : Less Than 3 Seconds Height, Weight, BMI Height: 5'8.00" Weight: 220lbs. 0.0oz. [id number]; 28.23 BMI Method: Assessment/Plan Assessment and Plan Sepsis Temperature <36C, pulse >90 on admission Cellulitis likely source of infection Started on Rocephin 1g IV daily Lactic acid elevated at 2.91 on admission, last measured at 1.65 Chronic edema Started on lasix 40mg IV BID Cardiology consulted Echo ordered, awaiting results Sodium restricted diet Monitor I's and O's Chronic back pain Fentanyl patch 75mcg Q72H changed this morning Hydromorphone increased to 2mg IV Q3H Consult PT Anemia Mild, will monitor Hg Hyponatremia Mild, will continue to monitor Admission Diagnosis Admission Status: Observation CLARY TANG May 31, 2022 12:41
--- NOTE | 2022-05-31 13:49 | Consultation-Cardiology ---
HPI-Cardiology Cardiology Consultation: Date of Consultation 05/31/22 Time Seen by a Provider: 13:30 Date of Admission Attending Physician Brian Smith MD Admitting Physician Admitting Physician: Roxanna Novak MD Attending Physician: Roxanna Novak MD Consulting Physician ROSCOE MARTINS MD, MA, FACP, FACC, FSCAI, CCDS Physician requesting consult: Dr Novak HPI: Chief Complaint: Reason for Card consult: Bilat leg swelling 71 yo man with increasing leg swelling, bilateral, for the past two weeks. This is from feet to hip on both sides and is associated with redness of the legs and increasing leg discomfort. Has chronic low back pain and bilat usrh-jm-lushr pain, but this has been much worse lately. No cp or palp or syncope. Chronic urinary hesitancy, worse since place on Bumex by pcp several days ago (for leg swelling). Intermittent nausea, no vomiting, no diarrhea. Chronic sinus drainage. No shortness of breath Review of Systems-Cardiology Review of Systems Constitutional: malaise, tiredness, weight loss (considerable wgt loss in the last several months, unintentional); No weight gain Eyes: No vision change Ears/Nose/Throat: No recent hearing loss, No ulcerations Respiratory: As described under HPI Cardiovascular: As described under HPI Gastrointestinal: As described under HPI Genitourinary: dysuria; No hematuria; urine frequency changes (since on diuretics for leg swelling) Musculoskeletal: As describe under HPI, back pain, joint pain (Chronic pain in L knee) Skin: No rash, No ulcerations Psychiatric/Neurological: No seizure, No focal weakness, No syncope Hematologic: No bleeding abnormalities GIZ-Dymnce-Tjhauh Hx Patient Social History Marrital Status: Smoking Status: Never a Smoker Have you traveled recently?: No Alcohol Use?: No Pt feels they are or have been: No Immunizations Up To Date Date of Influenza Vaccine: Mar 20, 2010 Past Medical History PMH As described under Assessment. Family Medical History Family Medical History: No fam h/o early CAD Allergies and Home Medications Allergies Coded Allergies: No Known Drug Allergies (Unverified , 03/20/11) Patient Home Medication List Home Medication List Reviewed: Yes Physical Exam-Cardiology Physical Exam Vital Signs/I&O 05/31/22 05/31/22 05/31/22 05/31/22 04:03 07:00 07:55 08:55 Temp 37.0 36.7 Pulse 84 72 80 Resp 18 19 B/P (MAP) 138/69 (92) 162/82 (108) Pulse Ox 81 96 O2 Delivery Room Air Room Air Room Air 05/31/22 12:15 Temp 37.0 Pulse 80 Resp 18 B/P (MAP) 127/66 (86) Pulse Ox 96 O2 Delivery Room Air 05/31/22 00:00 Intake Total 600 ml Output Total 250 ml Balance 350 ml Capillary Refill : Less Than 3 Seconds Constitutional: AAO x 3, well-developed, well-nourished HEENT: EOMI, hard of hearing; No xanthelasmas are seen Neck: carotid pulses are 2 + bilaterally, with good upstrokes Respiratory: No accessory muscle use; chest expansion is symmetric, chest is bilaterally symmetric, other (good, bilateral air entry) Cardiovascular: regular rate-rhythm, S1 and S2, systolic murmur (soft LEV at card base) Gastrointestinal: No tender; soft; No guarding, No rebound; audible bowel sounds Extremities: No clubbing, No cyanosis; significant edema (bilat leg swelling) Neurologic/Psychiatric: oriented x 3, other (moves all limbs equally) Skin: No rash on exposed areas, No ulcerations on exposed areas Data Review Labs Laboratory Tests 05/30/22 16:00: White Blood Count 12.5H, Red Blood Count 4.03L, Hemoglobin 11.9L, Hematocrit 37L , Mean Corpuscular Volume 91, Mean Corpuscular Hemoglobin 30, Mean Corpuscular Hemoglobin Concent 32, Red Cell Distribution Width 12.4, Platelet Count 226, Mean Platelet Volume 10.5, Immature Granulocyte % (Auto) 1, Neutrophils (%) (Auto) 83H, Lymphocytes (%) (Auto) 7L, Monocytes (%) (Auto) 9, Eosinophils (%) (Auto) 0, Basophils (%) (Auto) 0, Neutrophils # (Auto) 10.3H, Lymphocytes # ( Auto) 0.9L, Monocytes # (Auto) 1.2H, Eosinophils # (Auto) 0.0, Basophils # (Auto) 0.0, Immature Granulocyte # (Auto) 0.1, Neutrophils % (Manual) 86, Lymphocytes % (Manual) 8, Monocytes % (Manual) 4, Basophils % (Manual) 2, Pl atelet Estimate NORMAL, Blood Morphology Comment NORMAL, Sodium Level 136, Potassium Level 4.2, Chloride Level 98, Carbon Dioxide Level 24, Anion Gap 14, Blood Urea Nitrogen 34H, Creatinine 1.18, Estimat Glomerular Filtration Rate 66, BUN/Creatinine Ratio 29, Glucose Level 156H, Lactic Acid Level 2.91*H, Calcium Level 9.4, Corrected Calcium 9.3, Magnesium Level 2.0, Total Bilirubin 0.6, Aspartate Amino Transf (AST/SGOT) 18, Alanine Aminotransferase (ALT/SGPT) 18, Alkaline Phosphatase 72, Troponin I < 0.028, C-Reactive Protein High Sensitivity 13.69H, B-Type Natriuretic Peptide 43.7, Total Protein 8.1, Albumin 4.1 05/30/22 18:00: Lactic Acid Level 2.48*H, Urine Color YELLOW, Urine Clarity CLEAR, Urine pH 6.0, Urine Specific Devine 1.010L, Urine Protein NEGATIVE, Urine Glucose (UA) NEGATIVE, Urine Ketones NEGATIVE, Urine Nitrite NEGATIVE, Urine Bilirubin NEGATIVE, Urine Urobilinogen 0.2, Urine Leukocyte Esterase NEGATIVE, Urine RBC (Auto) NEGATIVE, Urine RBC RARE, Urine WBC 5-10H, Urine Squamous Epithelial Cells 2-5, Urine Crystals NONE, Urine Bacteria FEWH, Urine Casts PRESENT, Urine Hyaline Casts 5-10H, Urine Mucus MODERATEH, Urine Culture Indicated YES 05/30/22 21:33: Lactic Acid Level 1.65 05/31/22 05:16: White Blood Count 10.4, Red Blood Count 3.86L, Hemoglobin 11.4L, Hematocrit 35L, Mean Corpuscular Volume 90, Mean Corpuscular Hemoglobin 30, Mean Corpuscular Hemoglobin Concent 33, Red Cell Distribution Width 12.4, Platelet Count 187, Mean Platelet Volume 10.4, Immature Granulocyte % (Auto) 0, Neutrophils (%) (Auto) 71, Lymphocytes (%) (Auto) 15, Monocytes (%) (Auto) 13H, Eosinophils (%) (Auto) 0, Basophils (%) (Auto) 1, Neutrophils # (Auto) 7.4, Lymphocytes # (Auto) 1.5, Monocytes # (Auto) 1.4H, Eosinophils # (Auto) 0.0, Basophils # (Auto) 0.1, Immature Granulocyte # (Auto) 0.0, Sodium Level 133L, Potassium Level 4.0, Chloride Level 96L, Carbon Dioxide Level 25, Anion Gap 12, Blood Urea Nitrogen 30H, Creatinine 0.98, Estimat Glomerular Filtration Rate 83, BUN/Creatinine Rat io 31, Glucose Level 112H, Calcium Level 9.0 Microbiology 05/30/22 Urine Culture - Preliminary, Resulted A/P-Cardiology Assessment/Admission Diagnosis Bilateral leg swelling of undetermined etiology - echo on 05/31/22: LVEF 55-60%, triv AI, PASP 25-30 mmHg Recent unintentional wgt loss Spinal stenosis and bilateral sciatica Recently diagnosed hypertension Bilateral leg cellulitis and sepsis - managed by the Hosp svce Discussion and Recomendations * Leg venous u/s to eval for DVT * If above negative, we recommend consideration of CT of abdomen and pelvis (deferred to the Hospitalist svlorenzo) * Monitor labs ROSCOE MARTINS MD FACP FAC CCDS May 31, 2022 13:49
[2022-05-31 16:17] VITALS: BP 137/66
[2022-05-31] MEDS: cefTRIAXone 1 GM/50 ML (PRE-MIX) IV SCH (16:33)
[2022-05-31 19:08] VITALS: BP 132/67
[2022-06-01] VITALS: BP 141/91
[2022-06-01] MEDS: HYDROmorphone 2 MG/ML VIAL (DILAUDID) IV PRN ×8 (02:06→20:51)
[2022-06-01 04:00] VITALS: BP 145/82
[2022-06-01] MEDS: CATHETER FLUSH 10 ML SYR IVP SCH ×3 (05:40→20:27)
[2022-06-01 07:50] VITALS: BP 152/77
[2022-06-01] MEDS: FUROSEMIDE 40 MG/4 ML INJ (LASIX) IV SCH ×2 (08:30→20:27)
[2022-06-01 09:17] LABS: BASOPHILS % (AUTO) 0 % (0-10); EOSINOPHILS % (AUTO) 0 % (0-10); HEMATOCRIT 34 % (40-54); HEMOGLOBIN 11.4 g/dL (13.3-17.7); LYMPHOCYTES % (AUTO) 8 % (12-44); MEAN CORPUSCULAR HEMOGLOBIN 30 pg (25-34); MEAN CORPUSCULAR HGB CONC 34 g/dL (32-36); MEAN CORPUSCULAR VOLUME 88 fL (80-99); MEAN PLATELET VOLUME 9.9 fL (9.0-12.2); MONOCYTES # (AUTO) 1.6 10^3/uL (0.0-1.0); MONOCYTES % (AUTO) 13 % (0-12); NEUTROPHILS # (AUTO) 9.5 10^3/uL (1.8-7.8); NEUTROPHILS % (AUTO) 78 % (42-75); PLATELET COUNT 167 10^3/uL (130-400); WHITE BLOOD COUNT 12.2 10^3/uL (4.3-11.0)
--- NOTE | 2022-06-01 09:19 | Diagnostic Imaging Report ---
INDICATION: Bilateral leg swelling and pain COMPARISON: None TECHNIQUE: Duplex, sylvester-scale and color-flow imaging of the bilateral lower extremity venous system was performed. FINDINGS: Extensive bilateral DVT is identified from the common femoral through to the popliteal veins. There is also extension into the cephalad portion of the calf veins, left greater than right. Note is also made of extension into the visualized portions of the bilateral profunda femoral veins. IMPRESSION: 1. Extensive bilateral DVT. Called to Sandra Blas at 9:14 a.m. by cvb. Dictated by: Dictated on workstation # [id number]
[2022-06-01 09:34] LABS: POTASSIUM 4.2 MMOL/L (3.6-5.0)
[2022-06-01 09:35] LABS: CALCIUM 8.9 MG/DL (8.5-10.1)
[2022-06-01 09:39] LABS: CREATININE SERUM 1.03 MG/DL (0.60-1.30)
--- NOTE | 2022-06-01 10:26 | Progress Note - Cardiology ---
Cardiology SOAP Progress Note Subjective: Lying in bed Significant other at the bedside More comfortable this morning in regards to leg discomfort, but continues to have No c/o CP or SOB or palpitations No report of n/v/d Objective: I&O/Vital Signs 06/01/22 06/01/22 06/01/22 06/01/22 04:00 07:13 07:50 08:00 Temp 36.8 36.7 Pulse 95 80 79 Resp 20 18 B/P (MAP) 145/82 (103) 152/77 (102) Pulse Ox 95 97 O2 Delivery Room Air Room Air Room Air 06/01/22 06/01/22 11:32 12:29 Temp 37.3 Pulse 80 92 Resp 18 B/P (MAP) 153/79 (103) Pulse Ox 98 O2 Delivery Room Air 06/01/22 00:00 Intake Total 1160 ml Output Total 800 ml Balance 360 ml Weight (Pounds): 220 Weight (Ounces): 0.0 Weight (Calculated Kilograms): 99.463552 Constitutional: AAO x 3, well-developed, well-nourished Respiratory: No accessory muscle use; chest expansion is symmetric, chest is bilaterally symmetric, other (good, bilateral air entry) Cardiovascular: regular rate-rhythm, S1 and S2, systolic murmur (soft LEV at card base) Gastrointestional: No tender; soft; No guarding, No rebound; audible bowel sounds Extremities: No clubbing, No cyanosis; significant edema (bilat leg swelling) Neurologic/Psychiatric: oriented x 3, other (moves all limbs equally) Skin: No rash on exposed areas, No ulcerations on exposed areas Results/Procedures: Labs Laboratory Tests 06/01/22 09:05: White Blood Count 12.2H, Red Blood Count 3.82L, Hemoglobin 11.4L, Hematocrit 34L , Mean Corpuscular Volume 88, Mean Corpuscular Hemoglobin 30, Mean Corpuscular Hemoglobin Concent 34, Red Cell Distribution Width 12.3, Platelet Count 167, Mean Platelet Volume 9.9, Immature Granulocyte % (Auto) 0, Neutrophils (%) (Auto) 78H, Lymphocytes (%) (Auto) 8L, Monocytes (%) (Auto) 13H, Eosinophils (%) (Auto) 0, Basophils (%) (Auto) 0, Neutrophils # (Auto) 9.5H, Lymphocytes # (Auto) 1.0, Monocytes # (Auto) 1.6H, Eosinophils # (Auto) 0.0, Basophils # (Auto) 0.0, Immature Granulocyte # (Auto) 0.1, Sodium Level 133L, Potassium Level 4.2, Chloride Level 96L, Carbon Dioxide Level 25, Anion Gap 12, Blood Urea Nitrogen 35H, Creatinine 1.03, Estimat Glomerular Filtration Rate 78, BUN/Creatinine Ratio 34, Glucose Level 133H, Calcium Level 8.9 Microbiology 05/30/22 Blood Culture - Preliminary, Resulted No growth 05/30/22 Urine Culture - Preliminary, Resulted Procedures NAME: DANIELA CASTRO [facility] REC#: [id number] PT STATUS: ADM IN : 1950 PHYSICIAN: ROSCOE FRIEDMAN MD, MA, FACP, FACC, FSCAI, CCDS ADMIT DATE: 05/30/22 Draft Date of Exam:06/01/22 US VENOUS LOWER EXT MALATHI INDICATION: Bilateral leg swelling and pain COMPARISON: None TECHNIQUE: Duplex, sylvester-scale and color-flow imaging of the bilateral lower extremity venous system was performed. FINDINGS: Extensive bilateral DVT is identified from the common femoral through to the popliteal veins. There is also extension into the cephalad portion of the calf veins, left greater than right. Note is also made of extension into the visualized portions of the bilateral profunda femoral veins. IMPRESSION: 1. Extensive bilateral DVT. Called to Sandra Blas at 9:14 a.m. by cvb. Dictated on workstation # [id number] Dict: 06/01/22903 Trans: 06/01/22918 CVB [id number] Interpreted by: MINISTERIO NJ MD Electronically signed by: A/P: Assessment: Bilateral leg swelling - Extensive bilat DVT per venous duplex of 06-01-22 - echo on 05/31/22: LVEF 55-60%, triv AI, PASP 25-30 mmHg Recent unintentional wgt loss Spinal stenosis and bilateral sciatica Recently diagnosed hypertension Bilateral leg cellulitis and sepsis - managed by the [facility] Plan: * Extensive bilat LE DVT per u/s of 06-01-22 - start OAC with Xarelto * Advise consideration of hematology/oncology consult d/t unprovoked extensive DVT's to determine source not to exclude consideration of malignancy - this is deferred to hospitalist services with whom Dr. Friedman communicated with yesterday (05-31-22) * Monitor labs closely JEANNA CORMIER Jun 01, 2022 10:26
[2022-06-01] MEDS ORDERED: APIXABAN 5 MG (ELIQUIS) TABLET PO SCH ×2 (10:30→21:00)
[2022-06-01] MEDS ORDERED: RIVAROXABAN 15 MG TABLET (XARELTO) PO NR (11:00)
[2022-06-01 11:32] VITALS: BP 153/79
[2022-06-01] MEDS ORDERED: BUME1TAB8 PO (11:32)
[2022-06-01] MEDS ORDERED: HYDR-3820 PO ×2 (11:32→12:26)
[2022-06-01] MEDS ORDERED: ROPI4TAB5 PO (11:32)
[2022-06-01] MEDS ORDERED: LOSA25TA41 PO (11:32)
[2022-06-01] MEDS ORDERED: FENT1PAT10 TD (11:38)
[2022-06-01] MEDS ORDERED: DICL20GE TP (11:39)
[2022-06-01] MEDS ORDERED: MELA3TAB39 PO (11:40)
[2022-06-01] MEDS ORDERED: ACET325T38 PO (11:41)
[2022-06-01] MEDS ORDERED: RIVA1TAB PO (12:26)
[2022-06-01] MEDS ORDERED: CATHETER FLUSH 10 ML SYR IVP PRN (12:45)
--- NOTE | 2022-06-01 13:03 | Progress Note - Cardiology ---
Cardiology SOAP Progress Note Subjective: No cp or palp or syncope Bilat leg swelling and tightness No shortness of breath at rest Gen weakness and malaise No focal weakness Poor appetite. No n/v/d Objective: I&O/Vital Signs 06/01/22 06/01/22 06/01/22 06/01/22 04:00 07:13 07:50 08:00 Temp 36.8 36.7 Pulse 95 80 79 Resp 20 18 B/P (MAP) 145/82 (103) 152/77 (102) Pulse Ox 95 97 O2 Delivery Room Air Room Air Room Air 06/01/22 06/01/22 11:32 12:29 Temp 37.3 Pulse 80 92 Resp 18 B/P (MAP) 153/79 (103) Pulse Ox 98 O2 Delivery Room Air 06/01/22 00:00 Intake Total 1160 ml Output Total 800 ml Balance 360 ml Weight (Pounds): 220 Weight (Ounces): 0.0 Weight (Calculated Kilograms): 99.746837 Constitutional: AAO x 3, well-developed, well-nourished Respiratory: No accessory muscle use; chest expansion is symmetric, chest is bilaterally symmetric, other (good, bilateral air entry) Cardiovascular: regular rate-rhythm, S1 and S2, systolic murmur (soft LEV at card base) Gastrointestional: No tender; soft; No guarding, No rebound; audible bowel sounds Extremities: No clubbing, No cyanosis; significant edema (bilat leg swelling) Neurologic/Psychiatric: oriented x 3, other (moves all limbs equally) Skin: No rash on exposed areas, No ulcerations on exposed areas Results/Procedures: Labs Laboratory Tests 06/01/22 09:05: White Blood Count 12.2H, Red Blood Count 3.82L, Hemoglobin 11.4L, Hematocrit 34L , Mean Corpuscular Volume 88, Mean Corpuscular Hemoglobin 30, Mean Corpuscular Hemoglobin Concent 34, Red Cell Distribution Width 12.3, Platelet Count 167, Mean Platelet Volume 9.9, Immature Granulocyte % (Auto) 0, Neutrophils (%) (Auto) 78H, Lymphocytes (%) (Auto) 8L, Monocytes (%) (Auto) 13H, Eosinophils (%) (Auto) 0, Basophils (%) (Auto) 0, Neutrophils # (Auto) 9.5H, Lymphocytes # (Auto) 1.0, Monocytes # (Auto) 1.6H, Eosinophils # (Auto) 0.0, Basophils # (Auto) 0.0, Immature Granulocyte # (Auto) 0.1, Sodium Level 133L, Potassium Level 4.2, Chloride Level 96L, Carbon Dioxide Level 25, Anion Gap 12, Blood Urea Nitrogen 35H, Creatinine 1.03, Estimat Glomerular Filtration Rate 78, BUN/Creatinine Ratio 34, Glucose Level 133H, Calcium Level 8.9 Microbiology 05/30/22 Blood Culture - Preliminary, Resulted No growth 05/30/22 Urine Culture - Preliminary, Resulted A/P: Assessment: Bilateral leg swelling - Extensive bilat DVT per venous duplex of 06-01-22 - echo on 05/31/22: LVEF 55-60%, triv AI, PASP 25-30 mmHg Recent unintentional wgt loss Spinal stenosis and bilateral sciatica Recently diagnosed hypertension Bilateral leg cellulitis and sepsis - managed by the Hosp svce Plan: * Extensive bilat LE DVT per u/s of 06-01-22 - start OAC with Xarelto * Advise consideration of hematology/oncology consult d/t unprovoked extensive DVT's to determine source not to exclude consideration of malignancy - this is deferred to Hospitalist services with whom I communicated on 05-31-22 * Monitor labs closely ROSCOE MARTINS MD FACP FAC CCDS Jun 01, 2022 13:03
[2022-06-01] MEDS ORDERED: NS 100 ML (IVPB) BAG IV ONE (13:45)
[2022-06-01] MEDS ORDERED: IOHEXOL 350 MG/ML 100 ML (OMNIPAQUE 350) VIAL IV ONE (13:45)
[2022-06-01] MEDS ORDERED: CATHETER FLUSH 10 ML SYR IV PRN (13:45)
[2022-06-01] MEDS ORDERED: HOLD METFORMIN - RECEIVED CONTRAST 20 ML VIAL IV SCH (13:45)
--- NOTE | 2022-06-01 14:00 | Progress Note - Hospitalist ---
Subjective HPI/CC On Admission Date Seen by Provider: Jun 01, 2022 Time Seen by Provider: 10:15 Subjective/Events-last exam He is having leg pain. He still has swelling. He has been able to get up and walk. Focused Exam Lactate Level 05/30/22 16:00: Lactic Acid Level 2.91*H 05/30/22 18:00: Lactic Acid Level 2.48*H 05/30/22 21:33: Lactic Acid Level 1.65 Objective Exam Vital Signs Vital Signs Date Time Temp Pulse Resp B/P (MAP) Pulse Ox O2 Delivery O2 Flow Rate FiO2 06/01/22 12:29 92 06/01/22 11:32 37.3 18 153/79 (103) 98 Room Air Capillary Refill : Less Than 3 Seconds General Appearance: No Apparent Distress, WD/WN Neck: Normal Inspection, Supple Respiratory: Lungs Clear, No Respiratory Distress Cardiovascular: Regular Rate, Rhythm, No Murmur Gastrointestinal: Normal Bowel Sounds, Soft Extremity: Calf Tenderness; No Inflammation; Swelling Neurologic/Psychiatric: Alert, Normal Mood/Affect Skin: Normal Color, Warm/Dry Results/Procedures Lab Laboratory Tests 06/01/22 09:05 Patient resulted labs reviewed. Imaging: Reviewed Imaging Report Assessment/Plan Assessment and Plan Assess & Plan/Chief Complaint Acute DVT of bilateral lower extremities US with extensive bilateral DVTs Started on Xarelto Consult Dr. Barton for possible intervention Recommend outpatient age-appropriate cancer screening Possible cellulitis Rocephin Lower extremity swelling Lasix Cardiology following, Dr. Friedman Echo without evidence of CHF Chronic back pain Fentanyl patch PT Anemia Mild, monitor Hyponatremia Mild, monitor Diagnosis/Problems Diagnosis/Problems (1) Acute deep vein thrombosis (DVT) of both lower extremities Status: Acute Qualifiers: Affected thrombotic vein of extremity: femoral Qualified Codes: I82.413 - Acute embolism and thrombosis of femoral vein, bilateral (2) Lactic acidosis Status: Resolved Resolution Date/Time: 06/01/22 @ 13:58 (3) Anemia Status: Acute (4) Hyponatremia Status: Acute (5) Spinal stenosis Status: Chronic (6) Chronic back pain Status: Chronic RHEA RILEY MD Jun 01, 2022 14:00
--- NOTE | 2022-06-01 14:26 | Physical Therapy Evaluation ---
PT Evaluation-General Medical Diagnosis Admission Date May 30, 2022 at 17:56 Medical Diagnosis: bilateral LE cellulitis/PE's Onset Date: May 30, 2022 Therapy Diagnosis Therapy Diagnosis: debility/weakness Height/Weight Height (Feet): 5 Height (Inches): 8.00 Weight (Pounds): 220 Weight (Ounces): 0.0 Precautions Precautions/Isolations: Fall Prevention, Standard Precautions Referral Physician: Tiffany Reason for Referral: Evaluation/Treatment Medical History Pertinent Medical History: HTN, Neuropathy, Parkinson's Current History ER secondary to LBP and LE edema Reviewed History: Yes Social History Home: Single Level Current Living Status: Spouse Entry Into Home: Stairs With Railing PT Steps Into Home: 3 Prior Prior Level of Function SCALE: Activities may be completed with or without assistive devices. 9-Nllpvlbaxi-bueirmk completes the activity by him/herself with no assistance from a helper. 5-Set-up or Clean-up Assistance-helper sets up or cleans up; patient completes activity. [place] assists only prior to or following the activity. 4-Supervision or Touching Assistance-helper provides verbal cues and/or touc [place]/steadying and/or contact guard assistance as patient completes activity. Assistance may be provided throughout the activity or intermittently. 3-Partial/Moderate Assistance-helper does LESS THAN HALF the effort. [place] lifts, holds or supports trunk or limbs, but provides less than half the effort. 2-Substantial/Maximal Assistance-helper does MORE THAN HALF the effort. [place] lifts or holds trunk or limbs and provides more than half the effort. 0-Noulgjkaa-ducdyw does ALL the effort. Patient does none of the effort to complete the activity. Or, the assistance of 2 or more helpers is required for the patient to complete the activity. If activity was not attempted, code reason: 7-Patient Refused. 9-Not Applicable-not attempted and the patient did not perform the activity before the current illness, exacerbation or injury. 10-Not Attempted due to Environmental Limitations-(lack of equipment, weather restraints, etc.). 88-Not Attempted due to Medical Conditions or Safety Concerns. Bed Mobility: 6 Transfers (B,C,W/C): 6 Gait: 6 Stairs: 6 Indoor Mobility (Ambulation): Independent Stairs: Independent Prior Devices Use: None PT Evaluation-Current Subjective Patient agrees to PT. Pain Numeric Pain Scale: 10-Worst Possible Pain Location: Right, Left Location Body Site: Thigh Pain Description: Acute Objective Patient Orientation: Normal For Age ROM/Strength ROM Lower Extremities bilateral LE WFL Strength Lower Extremities 3+/5 bilateral LE all planes Integumentary/Posture Bowel Incontinence: No Bladder Incontinence: No Posture WFL Neuromuscular (Tone, Coordination, Reflexes) grossly intact Sensory Vision: Functional Hearing: Functional Sensation Right Lower Extremit: Impaired Sensation Left Lower Extremity: Impaired Transfers Sit to Lying (QC): 6 Lying to Sitting/Side of Bed(Q: 6 Sit to Stand (QC): 4 Gait Mode of Locomotion: Walk Anticipated Mode of Locomotion: Walk Walk 10 feet (QC): 4 Walk 50 ft with 2 Turns(QC): 4 Walk 150 ft (QC): 4 Distance: 150' Gait Assistive Device: FWW Comments/Gait Description slow and antalgic Balance Sitting Static: Normal Sitting Dynamic: Normal Standing Static: Normal Standing Dynamic: Normal Assessment/Needs Patient will be seen short term by skilled PT to address functional strength and mobility to improve current LOF to safely return to home at maximum LOF. Rehab Potential: Fair PT Mcc Goals Mcc Goals PT Mcc Goals Time Frame: Jun 13, 2022 Roll Left & Right (QC): 6 Sit to Lying (QC): 6 Lying-Sitting on Side/Bed(QC): 6 Sit to Stand (QC): 6 Chair/Til-fa-Ccwah Xfer(QC): 6 Toilet Transfer (QC): 6 Walk 10 feet (QC): 6 Walk 50ft with 2 Turns (QC): 6 Walk 150 ft (QC): 6 PT Plan Problem List Problem List: Activity Tolerance, Functional Strength, Safety, Balance, Gait, Transfer Treatment/Plan Treatment Plan: Continue Plan of Care Treatment Plan: Education, Functional Activity Cb, Functional Strength, Gait, Safety, Therapeutic Exercise, Transfers Treatment Duration: Jun 13, 2022 Frequency: 6 times per week Estimated Hrs Per Day: .25 hour per day Patient and/or Family Agrees t: Yes Time Time In: 1345 Time Out: 1355 DATE: Jun 01, 2022 Total Billed Treatment Time: 10 Total Billed Treatment 1 visit EVModC 10 min NELSON YI PT Jun 01, 2022 14:26
--- NOTE | 2022-06-01 15:08 | Diagnostic Imaging Report ---
INDICATION: Evaluation for PE and clot in abd/pelvis CTA chest, abdomen and pelvis Thin axial sections through the chest, abdomen and pelvis are obtained following intravenous contrast bolus. Multiplanar MIP images were reconstructed and reviewed. All CT scans use one or more of the following dose optimizing techniques: automated exposure control, MA and/or KvP adjustment based on patient size and exam type or iterative reconstruction. CT ANGIOGRAM CHEST: Evaluation of the pulmonary arterial system is without evidence of thromboembolism. No definite filling defects are seen within central, lobar or segmental branches. The thoracic aorta is normal in caliber. No dissection is identified. There is no pericardial or pleural fluid identified. Both lungs appear clear of acute infiltrates. There is some minimal linear atelectasis in the right lower lobe. IMPRESSION: No evidence of pulmonary embolism or acute aortic disease. CT ABDOMEN AND PELVIS WITH CONTRAST: No focal liver mass is detected. Gallbladder is unremarkable. There is no biliary ductal dilatation. The pancreas and spleen are unremarkable. No adrenal mass is identified. The left kidney is unremarkable. There is a large solid mass involving the iqr-ir-wxumi aspect of the right kidney measuring 10.2 x 9.4 cm. There appears to be some low-attenuation expansion of the right renal vein and the possibility of tumor or bland thrombus within the right renal vein cannot be entirely excluded. Just below the level of the renal vein inflow within the IVC, there is a large filling defect occupying the IVC. There appears to be thrombus throughout bilateral common iliac veins as well as external iliac veins and common femoral veins. The suprarenal IVC appears to be patent. Aorta is nonaneurysmal. No definite central retroperitoneal lymphadenopathy is seen. Bowel loops are normal in caliber. There is no ascites. There is a small nodular density noted in the left aspect of the bladder base which does not appear to be calcified. Slight nodularity in the midline of the bladder base is also noted. Prostate is mildly enlarged. No pelvic lymphadenopathy is seen. Bony structures are nonacute. IMPRESSION: 1. Large right renal mass, suggestive of a renal cell carcinoma. There is extensive thrombus throughout the infrarenal IVC as well as bilateral common and external iliac veins as well as bilateral common femoral veins. There does appear to be some low-attenuation expansion to the right renal vein as well. The possibility of tumor thrombus within the right renal vein cannot be entirely excluded. The extent of tumor versus bland thrombus cannot be ascertained. In addition, there is some slight nodularity to the bladder base and the possibility of bladder urothelial neoplasm cannot be entirely excluded. No definite abdominal or pelvic lymphadenopathy is seen. Dictated by: Dictated on workstation # [id number]
[2022-06-01 16:13] VITALS: BP 128/66
[2022-06-01] MEDS: cefTRIAXone 1 GM/50 ML (PRE-MIX) IV SCH (18:14)
[2022-06-01] MEDS ORDERED: RIVAROXABAN 15 MG TABLET (XARELTO) PO SCH (19:00)
[2022-06-01 19:09] VITALS: BP 153/75
--- NOTE | 2022-06-02 08:00 | Discharge Summary ---
Discharge Summary Hospital Course Problems/Dx: (1) Acute deep vein thrombosis (DVT) of both lower extremities Status: Acute Qualifiers: Qualified Codes: I82.413 - Acute embolism and thrombosis of femoral vein, bilateral (2) Lactic acidosis Status: Resolved (3) Anemia Status: Acute (4) Hyponatremia Status: Acute (5) Spinal stenosis Status: Chronic (6) Chronic back pain Status: Chronic (7) Right renal mass Status: Acute Hospital Course Date of Admission: May 30, 2022 at 17:56 Admission Diagnosis : Cellulitis, leg swelling Family Physician/Provider: Brian Ann MD Date of Discharge: 06/01/22 Discharge Diagnosis: Acute bilateral extensive DVT with IVC thrombus, right r enal mass likely renal cell carcinoma Hospital Course: Mati Villa is a 71 year old male who was admitted with leg swelling. There was concern for cellulitis and he was started on antibiotics. There was also concern for heart failure. Cardiology was consulted. He had a normal echo with evidence of heart failure. He had a lower extremity ultrasound which revealed extensive bilateral DVT. He had significant pain associated with the clot burden. Dr. Barton was consulted for possible thrombectomy. A CT was performed which showed right renal mass 10 x 9 cm. The DVTs were visualized with extension up to the infrarenal IVC. There was also concern for extension in to the right renal vein. He was started on Xarelto for the DVTs. He was transferred to [facility] for Urology consultation and Vascular Surgery consultation so a nephrectomy and thormbectomy could be coordinated and performed together. Labs and Pending Lab Test: Laboratory Tests 06/01/22 09:05: White Blood Count 12.2H, Red Blood Count 3.82L, Hemoglobin 11.4L, Hematocrit 34L , Mean Corpuscular Volume 88, Mean Corpuscular Hemoglobin 30, Mean Corpuscular Hemoglobin Concent 34, Red Cell Distribution Width 12.3, Platelet Count 167, Mean Platelet Volume 9.9, Immature Granulocyte % (Auto) 0, Neutrophils (%) (Auto) 78H, Lymphocytes (%) (Auto) 8L, Monocytes (%) (Auto) 13H, Eosinophils (%) (Auto) 0, Basophils (%) (Auto) 0, Neutrophils # (Auto) 9.5H, Lymphocytes # (Auto) 1.0, Monocytes # (Auto) 1.6H, Eosinophils # (Auto) 0.0, Basophils # (Auto) 0.0, Immature Granulocyte # (Auto) 0.1, Sodium Level 133L, Potassium Level 4.2, Chloride Level 96L, Carbon Dioxide Level 25, Anion Gap 12, Blood Urea Nitrogen 35H, Creatinine 1.03, Estimat Glomerular Filtration Rate 78, BUN/C reatinine Ratio 34, Glucose Level 133H, Calcium Level 8.9 Microbiology 05/30/22 Blood Culture - Preliminary, Resulted No growth 05/30/22 Urine Culture - Preliminary, Resulted Culture In Progress Home Meds Active Xarelto Starter Pack (Rivaroxaban) 15 Mg (42)- 20 Mg (9) Tab.ds.pk 1 Each PO UD 15mg by mouth twice daily x 21 days then 20mg by mouth daily Hydrocodone-Acetamin 10-325 mg (Hydrocodone/Acetaminophen) 10 Mg-325 Mg Tablet 1 Each PO Q4H PRN 7 Days FILLED 05-25-2022 #28 Reported Tylenol (Acetaminophen) 325 Mg Tablet 975 Mg PO Q8H PRN TAKES 3 (325MG) TABS Melatonin 3 Mg Tablet 6 Mg PO HS TAKES 2 (3MG) TABS Voltaren Arthritis Pain (Diclofenac Sodium) 1 % Gel..gram. 1 Applic TP DAILY PRN Fentanyl Patch 75MCG (Fentanyl) 75 Mcg/Hour Patch.td72 75 Mcg TD Q72H FILLED 05-22-2022 #10 Ropinirole HCl 4 Mg Tablet 8 Mg PO HS TAKES 2 (4MG) TABS Losartan Potassium 25 Mg Tablet 25 Mg PO DAILY Bumetanide 1 Mg Tablet 1 Mg PO DAILY Assessment/Pt Instructions Transferred to [facility] Discharge Planning: >30 minutes discharge planning Discharge Instructions Discharge Diet: No Restrictions Activity as Tolerated: Yes Consultations Cardiology Discharge Physical Examination Vital Signs Vital Signs Date Time Temp Pulse Resp B/P (MAP) Pulse Ox O2 Delivery O2 Flow Rate FiO2 06/01/22 20:25 Room Air 06/01/22 19:09 37.4 97 18 153/75 (101) 96 Allergies: Coded Allergies: No Known Drug Allergies (Unverified , 03/20/11) Copy Copies To 1: BRIAN ANN MD Discharge Summary Date of Admission May 30, 2022 at 17:56 Date of Discharge Jun 01, 2022 at 21:40 Discharge Date: Jun 01, 2022 Discharge Time: 21:40 Admission Diagnosis Cellulitis Consults/Procedures Consulations Cardiology Discharge Diagnosis Acute DVT of bilateral lower extremities Right renal mass Chronic back pain Anemia Hyponatremia (1) Acute deep vein thrombosis (DVT) of both lower extremities Status: Acute Qualifiers: Qualified Codes: I82.413 - Acute embolism and thrombosis of femoral vein, bilateral (2) Lactic acidosis Status: Resolved (3) Anemia Status: Acute (4) Hyponatremia Status: Acute (5) Spinal stenosis Status: Chronic (6) Chronic back pain Status: Chronic (7) Right renal mass Status: Acute RHEA RILEY MD Jun 02, 2022 07:57
--- NOTE | 2022-06-02 08:25 | Physician Query Clarification ---
Physician Query-General Query to Physician: Clinical Validation Clarification Dr Wilbur Riley Sepsis has been documented in the medical record on the H and P and a consult note. After study, has Sepsis been ruled out? If it has been ruled out, please document Sepsis ruled out" in the progress notes and/or discharge summary. Yes/Agreed, Sepsis ruled out/is not clinically valid Not agreed, Sepsis has not been ruled out/is clinically valid* *Please document the clinical evidence supportive of this diagnosis (even if now resolved) in the Progress Notes and Discharge Summary Other, with explanation of the clinical findings Clinically undetermined, no explanation for the clinical findings Additional information: Was admitted B/L leg pain with swelling with initial Dx of Cellulitis later documented to be "possible Cellulitis" Also found to have DVT of Bilateral lower extremities Admission VS/Labs: HR 95, RR 20, BP 138/75, SpO2 97% sat on room air, T 35.9, WBC 12.5, lactic acid 2.91. Blood cultures X 2 no growth to date, Treatment: ER: ceftriaxone IV, Lasix IV, Ceftriaxone and IV Lasix continued In responding to this query, please exercise your independent professional judgment. The purpose of this communication is to more accurately reflect the complexity of your patients condition. The fact that a question is asked does not imply that any particular answer is desired or expected. Thank you for your timely response to this clarification. Lida Stallings MSN, RN Clinical Wire Products Inspector [email or web address] PHYSICIAN RESPONSE: Based on the clinical findings in the record, please respond to the query above on this document as an addendum. Physician Response: Physician Response Sepsis ruled out If you have questions please contact: Environment Artist: Ext: Thank you for your time and cooperation. Clinical Wire Products Inspector/Environment Artist This is a permanent part of the medical record LIDA STALLINGS Jun 02, 2022 08:25 RHEA RILEY MD Jun 03, 2022 09:16
--- NOTE | 2022-06-03 00:42 | Physician Query Clarification ---
PQ-Uncertain Diagnosis Admission/Discharge Admission Date: May 30, 2022 at 17:56 Discharge Date: Jun 01, 2022 at 21:40 Dr Wilbur Riley The medical record reflects the following clinical scenario: History/Risk Factors: 71 y/o male patient admitted B/L leg pain with swelling with initial diagnosis of Cellulitis later documented to be "possible Cellulitis" also found to have DVT of bilateral lower extremities, sepsis was documented in medical record. Clinical Findings: HR 95, RR 20, BP 138/75, SpO2 97% sat on room air, T 35.9, WBC 12.5, lactic acid 2.91. Blood cultures X 2 no growth to date. Treatment: ceftriaxone IV, Lasix IV, Ceftriaxone and IV Lasix continued. Question: IsSepsis a clinically valid diagnosis? Sepsis was documented in the H and P, 05/30 with no further documentation in the medical record. Please document a response in Progress Note or Discharge Summary. 1. Yes, clinically valid, condition resolved. 2. No, condition ruled out. 3. Other, with explanation of clinical findings. 4. Undetermined, no explanation for clinical findings. PHYSICIAN RESPONSE Diagnosis clinically valid: No, conditon ruled out In responding to this query, please exercise your independent professional judgment. The purpose of this communication is to more accurately reflect the complexity of your patients condition. The fact that a question is asked does not imply that any particular answer is desired or expected. Thank you for your timely response to this clarification. Requestors name: [ ] Phone # [ ] THIS PHYSICIAN QUERY FORM IS A PERMANENT PART OF THE MEDICAL RECORD ELIZABETH HAGEN Jun 03, 2022 00:42 RHEA RILEY MD Jun 03, 2022 09:16
[2022-06-08] MEDS ORDERED: APIXABAN 5 MG (ELIQUIS) TABLET PO SCH (09:00)
[2022-06-22] MEDS ORDERED: RIVAROXABAN 20 MG TABLET (XARELTO) PO SCH (17:00)
== END 2022-06-01 21:40 | disposition short-term general hospital (02) | DRG 300 ==
LOC: EDUNIT# 15:28 → ER 15:31 → 4TH 17:56
PROVIDERS: ADMIT Family Medicine; ATTEND Internal Medicine
DX: I82.413 Acute embolism and thrombosis of femoral vein, bilateral (principal); C64.1 Malignant neoplasm of right kidney, except renal pelvis; E87.1 Hypo-osmolality and hyponatremia; E87.20 Acidosis, unspecified; D64.9 Anemia, unspecified; M48.00 Spinal stenosis, site unspecified; G89.29 Other chronic pain; M54.9 Dorsalgia, unspecified; G20 Parkinson's disease; G62.9 Polyneuropathy, unspecified
CPT/HCPCS: 36415; 71045; 71275; 74177; 80048; 80053; 81000; 83605; 83735; 83880; 84484; 85007; 85025; 85027; 86141; 87040; 87088; 93005; 93306; 93970

== ENCOUNTER → 2022-06-20 | Outpatient (CLI) | payer MEDICARE, OTHER ==
[~2022-06-20] MED LIST changes: +ACET325T38 PO; +BUME1TAB8 PO; +DICL20GE TP; +FENT1PAT10 TD; +HYDR-3820 PO; -IOHEXOL 350 MG/ML 100 ML (OMNIPAQUE 350) VIAL IV ONE; +LOSA25TA41 PO; +MELA3TAB39 PO; -NS 250 ML (IVPB) BAG IV ONE; +RIVA1TAB PO; +ROPI4TAB5 PO
[2022-06-20 11:56] LABS: CLARITY,URINE CLEAR; GLUCOSE, URINE (UA) NEGATIVE (NEGATIVE); KETONES,URINE NEGATIVE (NEGATIVE); LEUKOCYTE ESTERASE ,URINE NEGATIVE (NEGATIVE); NITRITE,URINE NEGATIVE (NEGATIVE); PROTEIN,URINE TRACE (NEGATIVE)
[2022-06-20 11:59] LABS: COLOR,URINE DARK YELLOW
[2022-06-20 12:00] LABS: BACTERIA,URINE MODERATE /HPF; BILIRUBIN,URINE 1+ (NEGATIVE); GRANULAR CASTS,URINE 0-2 /LPF; HYALINE CASTS, URINE 0-2 /LPF
== END ==
PROVIDERS: ATTEND Pediatrics
DX: C64.1 Malignant neoplasm of right kidney, except renal pelvis (principal)
CPT/HCPCS: 81000; 87088

== ENCOUNTER 2022-06-21 16:22 | Emergency (ER) | payer MEDICARE ==
[~2022-06-21] VITALS: Ht 170 cm; Wt 82.0 kg
[2022-06-21 16:38] LABS: BASOPHILS # (AUTO) 0.1 10^3/uL (0.0-0.1); BASOPHILS % (AUTO) 0 % (0-10); EOSINOPHILS % (AUTO) 0 % (0-10); HEMATOCRIT 21 % (40-54); LYMPHOCYTES # (AUTO) 1.7 10^3/uL (1.0-4.0); LYMPHOCYTES % (AUTO) 9 % (12-44); MEAN CORPUSCULAR HEMOGLOBIN 29 pg (25-34); MEAN CORPUSCULAR HGB CONC 33 g/dL (32-36); MEAN CORPUSCULAR VOLUME 87 fL (80-99); MONOCYTES # (AUTO) 1.1 10^3/uL (0.0-1.0); MONOCYTES % (AUTO) 6 % (0-12); NEUTROPHILS # (AUTO) 15.3 10^3/uL (1.8-7.8); NEUTROPHILS % (AUTO) 81 % (42-75); PLATELET COUNT 434 10^3/uL (130-400); WHITE BLOOD COUNT 18.8 10^3/uL (4.3-11.0)
--- NOTE | 2022-06-21 16:43 | ED General ---
General Chief Complaint: General Problems/Pain Stated Complaint: LOW HEMOGLOBIN Nursing Triage Note: Patient presented to the ER today via EMS with complaints of low hemoglobin. Patient denies complains of pain. Source of Information: Patient Exam Limitations: No Limitations History of Present Illness Date Seen by Provider: Jun 21, 2022 Time Seen by Provider: 16:37 Initial Comments Patient is a 71-year-old male with a history of DVT requiring thrombectomy and filter placement, renal cell carcinoma requiring right nephrectomy, chronic anemia, hypertension, obstructive sleep apnea who presents ED from alf for low hemoglobin. Patient had lab work drawn today with a hemoglobin of 7.1 white blood count of 19.2. Patient states he has a cool wash rag on his forehead to help cool him down. Patient does have some abdominal pain but states no worsening pain since his surgery. States the pain in his lower extremities has improved. Denies of any increased swelling, pain to the lower extremities at this time. He reports a mild cough without shortness of breath, chest pain, headache, sore throat. He started having some diarrhea loose stools today without any blood. Patient does have a Carlson catheter indwelling. Patient was discharged from [facility] in [place] this past Wednesday. Patient is currently a resident at a [facility]. No known fever according to family. Allergies and Home Medications Allergies Coded Allergies: No Known Drug Allergies (Unverified , 03/20/11) Patient Home Medication List Home Medication List Reviewed: Yes Acetaminophen (Tylenol) 325 Mg Tablet, 975 MG PO Q8H PRN for PAIN-MILD (1-4), (Reported) Entered as Reported by: DARIN SAMAYOA on 06/01/22 1141 Bumetanide (Bumetanide) 1 Mg Tablet, 1 MG PO DAILY, (Reported) Entered as Reported by: DARIN SAMAYOA on 06/01/22 1132 Diclofenac Sodium (Voltaren Arthritis Pain) 1 % Gel..gram., 1 APPLIC TP DAILY P RN for PAIN-MILD (1-4), (Reported) Entered as Reported by: DARIN SAMAYOA on 06/01/22 1139 Fentanyl (Fentanyl Patch 75MCG) 75 Mcg/Hour Patch.td72, 75 MCG TD Q72H, (Reported) Entered as Reported by: DARIN SAMAYOA on 06/01/22 1138 Hydrocodone/Acetaminophen (Hydrocodone-Acetamin 10-325 mg) 10 Mg-325 Mg Tablet, 1 EACH PO Q4H PRN for PAIN-MODERATE (5-7) Prescribed by: RHEA RILEY on 06/01/22 1227 Losartan Potassium (Losartan Potassium) 25 Mg Tablet, 25 MG PO DAILY, (Reported) Entered as Reported by: DARIN SAMAYOA on 06/01/22 1132 Melatonin (Melatonin) 3 Mg Tablet, 6 MG PO HS, (Reported) Entered as Reported by: DARIN SAMAYOA on 06/01/22 1140 Rivaroxaban (Xarelto Starter Pack) 15 Mg (42)- 20 Mg (9) Tab.ds.pk, 1 EACH PO UD Prescribed by: RHEA RILEY on 06/01/22 1226 Ropinirole HCl (Ropinirole HCl) 4 Mg Tablet, 8 MG PO HS, (Reported) Entered as Reported by: DARIN SAMAYOA on 06/01/22 1132 Review of Systems Review of Systems Constitutional: No chills, No diaphoresis, No weakness EENTM: No blurred vision, No double vision Respiratory: No cough, No dyspnea on exertion Cardiovascular: No chest pain Gastrointestinal: abdominal pain, diarrhea; No nausea, No other Musculoskeletal: No back pain, No joint pain Skin: No change in color, No change in hair/nails Hematologic/Lymphatic: Anemia All Other Systems Reviewed Negative Unless Noted: Yes Past Birxixf-Qceegd-Tmtcqi Hx Patient Social History Tobacco Use?: No Substance use?: No Alcohol Use?: No Immunizations Up To Date First/Initial COVID19 Vaccinat: 06/01 Second COVID19 Vaccination Mina: 06/27 Third COVID19 Vaccination Date: 01/24 Past Medical History Surgery/Hospitalization HX: SPINAL STENOSIS, FLUID RETENTION, PARKINSONS, FACIAL TRAUMA, NERVE ENDING IN BACK BURNED OFF Surgeries: Yes Orthopedic Respiratory: No Cardiac: Yes Chronic Edema/Swelling, Hypertension Neurological: Yes Neuropathy, Parkinson's Disease Musculoskeletal: Yes Back Injury, Chronic Back Pain Endocrine: No Hearing Impairment: Hard of Hearing Family Medical History No Pertinent Family Hx Physical Exam Vital Signs Vital Signs - First Documented 06/21/22 16:28 Temp 37.4 Pulse 96 Resp 18 B/P (MAP) 135/68 (90) Pulse Ox 99 O2 Delivery Room Air Capillary Refill : Less Than 3 Seconds Height, Weight, BMI Height: 5'8.00" Weight: 220lbs. 0.0oz. 99.974724lj; 28.00 BMI Method: General Appearance: No Apparent Distress, WD/WN Eyes: Bilateral Eye Normal Inspection, Bilateral Eye PERRL, Bilateral Eye EOMI HEENT: PERRL/EOMI, TMs Normal, Normal ENT Inspection, Pharynx Normal Neck: Full Range of Motion, Normal Inspection, Non Tender, Supple Respiratory: Chest Non Tender, Lungs Clear, Normal Breath Sounds, No Accessory Muscle Use, No Respiratory Distress Cardiovascular: Regular Rate, Rhythm, No Edema, No Gallop, No JVD Gastrointestinal: Normal Bowel Sounds, Tenderness (Right lateral abdominal tenderness. Surgical scar noted. Mild bruising. No induration, function mass) Back: Normal Inspection, No CVA Tenderness Extremity: Normal Capillary Refill, Normal Inspection, Normal Range of Motion Neurologic/Psychiatric: Alert, Oriented x3, No Motor/Sensory Deficits, Normal Mood/Affect, environmental health specialist II-XII Norm as Tested Skin: Warm/Dry Focused Exam Lactate Level 06/21/22 16:35: Lactic Acid Level 0.73 Lactic Acid Level Laboratory Tests Test 06/21/22 16:35 Lactic Acid Level 0.73 MMOL/L (0.50-2.00) Progress/Results/Core Measures Suspected Sepsis SIRS Temperature: Pulse: 96 Respiratory Rate: 18 Laboratory Tests 06/21/22 16:29: White Blood Count 18.8H Blood Pressure 135 /68 Mean: 90 06/21/22 16:35: Lactic Acid Level 0.73 Laboratory Tests 06/21/22 16:29: Creatinine 1.08, INR Comment 1.1, Platelet Count 434H, Total Bilirubin 0.5 Results/Orders Lab Results Laboratory Tests Test 06/21/22 16:29 06/21/22 16:35 06/21/22 18:03 06/22/22 08:50 Range/Units White Blood Count 18.8 H 4.3-11.0 10^3/uL Red Blood Count 2.45 L 4.30-5.52 10^6/uL Hemoglobin 7.0 L 13.3-17.7 g/dL Hematocrit 21 L 40-54 % Mean Corpuscular Volume 87 80-99 fL Mean Corpuscular Hemoglobin 29 25-34 pg Mean Corpuscular Hemoglobin Concent 33 32-36 g/dL Red Cell Distribution Width 16.4 H 10.0-14.5 % Platelet Count 434 H 130-400 10^3/uL Mean Platelet Volume 10.0 9.0-12.2 fL Immature Granulocyte % (Auto) 4 % Neutrophils (%) (Auto) 81 H 42-75 % Lymphocytes (%) (Auto) 9 L 12-44 % Monocytes (%) (Auto) 6 0-12 % Eosinophils (%) (Auto) 0 0-10 % Basophils (%) (Auto) 0 0-10 % Neutrophils # (Auto) 15.3 H 1.8-7.8 10^3/uL Lymphocytes # (Auto) 1.7 1.0-4.0 10^3/uL Monocytes # (Auto) 1.1 H 0.0-1.0 10^3/uL Eosinophils # (Auto) 0.0 0.0-0.3 10^3/uL Basophils # (Auto) 0.1 0.0-0.1 10^3/uL Immature Granulocyte # (Auto) 0.7 H 0.0-0.1 10^3/uL Neutrophils % (Manual) 86 % Lymphocytes % (Manual) 8 % Monocytes % (Manual) 3 % Eosinophils % (Manual) 1 % Metamyelocytes % 1 % Band Neutrophils 1 % Toxic Granulation 1+ Hypochromasia SLIGHT Target Cells SLIGHT Prothrombin Time 14.5 12.2-14.7 SEC INR Comment 1.1 0.8-1.4 Activated Partial Thromboplast Time 50 H 24-35 SEC Sodium Level 134 L 135-145 MMOL/L Potassium Level 4.7 3.6-5.0 MMOL/L Chloride Level 99 98-107 MMOL/L Carbon Dioxide Level 23 21-32 MMOL/L Anion Gap 12 5-14 MMOL/L Blood Urea Nitrogen 28 H 7-18 MG/DL Creatinine 1.08 0.60-1.30 MG/DL Estimat Glomerular Filtration Rate 74 BUN/Creatinine Ratio 26 Glucose Level 114 H 70-105 MG/DL Calcium Level 8.0 L 8.5-10.1 MG/DL Corrected Calcium 9.2 8.5-10.1 MG/DL Magnesium Level 1.9 1.6-2.4 MG/DL Total Bilirubin 0.5 0.1-1.0 MG/DL Aspartate Amino Transf (AST/SGOT) 19 5-34 U/L Alanine Aminotransferase (ALT/SGPT) 16 0-55 U/L Alkaline Phosphatase 71 40-136 U/L Total Protein 6.3 L 6.4-8.2 GM/DL Albumin 2.5 L 3.2-4.5 GM/DL Lipase 19 8-78 U/L Lactic Acid Level 0.73 0.50-2.00 MMOL/L Urine Color YELLOW Urine Clarity CLEAR Urine pH 6.5 5-9 Urine Specific [place] <=1.005 1.016-1.022 Urine Protein NEGATIVE NEGATIVE Urine Glucose (UA) NEGATIVE NEGATIVE Urine Ketones NEGATIVE NEGATIVE Urine Nitrite NEGATIVE NEGATIVE Urine Bilirubin NEGATIVE NEGATIVE Urine Urobilinogen 0.2 < = 1.0 MG/DL Urine Leukocyte Esterase 1+ H NEGATIVE Urine RBC (Auto) 1+ H NEGATIVE Urine RBC 2-5 H /HPF Urine WBC 25-50 H /HPF Urine Crystals PRESENT H /LPF Urine Uric Acid Crystals MODERATE H /LPF Urine Bacteria TRACE /HPF Urine Casts NONE /LPF Urine Mucus SMALL H /LPF Urine Culture Indicated YES Lab Scanned Report Transfusion Reaction Form [id number] Micro Results Microbiology 06/21/22 Urine Culture - Final, Complete NO GROWTH 06/21/22 Blood Culture - Preliminary, Resulted No growth 06/21/22 Blood Culture - Preliminary, Resulted No growth My Orders Orders - LISA DIEZ Cbc With Automated Diff (06/21/22 16:30) Comprehensive Metabolic Panel (06/21/22 16:30) Ua Culture If Indicated (06/21/22 16:30) Type And Screen (06/21/22 16:30) Partial Thromboplastin Time (06/21/22 16:30) Protime With Inr (06/21/22 16:30) Lactic Acid Analyzer (06/21/22 16:33) Blood Culture (06/21/22 16:33) Lipase (06/21/22 16:33) Magnesium (06/21/22 16:33) Chest 1 View, Ap/Pa Only (06/21/22 16:33) Manual Differential (06/21/22 16:29) Blood Culture (06/21/22 17:01) Ct Abdomen/Pelvis W Wo (06/21/22 16:30) Iohexol Injection (Omnipaque 350 Mg/Ml 1 (06/21/22 17:45) Received Contrast (Hold Metformin- Contr (06/21/22 17:45) Ns (Ivpb) (Sodium Chloride 0.9% Ivpb Bag (06/21/22 17:45) Urine Culture (06/21/22 18:03) Vital Signs: Special (Order) (06/21/22 19:58) Consent-Obtain Consent For (06/21/22 19:58) Monitor S/S Transfusion Reacti (06/21/22 19:58) Ns Iv 500 Ml (Sodium Chloride 0.9%) (06/21/22 20:00) Red Cells Leukocytes Reduced (06/21/22 19:58) Preop Checklist (06/21/22 19:58) Piperacillin Sodium/Tazobactam (Zosyn Vi (06/21/22 20:30) Oxycodone Immediate Rel Tablet (Oxyir Ta (06/21/22 21:45) Medications Given in ED Vital Signs/I&O 06/21/22 06/21/22 06/21/22 06/21/22 16:28 16:40 20:58 21:15 Temp 37.4 37.4 36.8 36.7 Pulse 96 98 89 89 Resp 18 18 18 16 B/P (MAP) 135/68 (90) 135/68 123/69 128/66 Pulse Ox 99 98 100 100 O2 Delivery Room Air Room Air Room Air Room Air 06/21/22 06/21/22 06/21/22 21:28 21:43 21:52 Temp 36.7 36.8 36.8 Pulse 91 91 91 Resp 16 18 16 B/P (MAP) 126/67 116/69 116/69 Pulse Ox 100 100 100 O2 Delivery Room Air Room Air Room Air Capillary Refill : Less Than 3 Seconds Blood Pressure Mean: 90 Departure Communication (Admissions) Time/Spoke to Admitting Phy: 20:[address] Dubose at [facility]. On a nephrology standpoint no further evaluation needed at this time but did recommend observation with recheck of CT abdomen and pelvis, monitor hemoglobin to rule out a potential bleed. Would be more than happy to evaluate the patient at [facility]. he recommended to contact urology Dr. Turner at [facility] to provide any other further guidance. Dr. Turner recommended observation, IV antibiotics, H&H in the morning. Discussed patient with Dr. Bowles urologist at [facility] who is affiliated with [facility] in [place] who took care of the patient at [place]. discussed results with Dr. Bowles. He did not feel concern on a urologist standpoint at this time for active bleed after reviewing the imaging results. States patient was heparinized during surgery secondary to her extensive thrombosis. Patient did receive several units of blood during surgery and during post op. Vascular surgery at [place] was involved. Dr. Bowles did not necessarily recommended transfer to [place]. He is aware that patient is currently on Lovenox and recommended continue medication due to his extensive thrombosis. IVC filter was not placed. If observation is needed he felt like we could handle this at our facility and transfer if anything changes. Discussed patient with Dr. Riley hospitalist who did not feel comfortable keeping patient here in case patient was to decompensate. Recommended transfer to a facility with urology, nephrology, vascular surgery. Patient was discussed with Dr. Lobato hospitalist at [facility] in [place]. She agreed with transfer but states that if patient was to need any vascular intervention that he will likely need to be transferred. Currently no vascular surgery until June 23. She did still feel comfortable accepting patient but will likely perform a second CT angio with runoff of the abdomen and pelvis continue monitoring H&H, IV antibiotics. Communication (PCP) Reviewed previous ER visits, H&P's, hospitalist H&P's. Patient was discharged from [facility] after undergoing a right nephrectomy secondary to rnal cell carcinoma, IVC thrombosis, bilateral lower extremity thrombosis. Not currently on chemotherapy. Expected to start here in [place] with a oncology follow-up. Patient returns to the ED with anemia, worsening white blood count. Does have a Carlson catheter currently on antibiotic daily for UTI. Does report a mild cough but states the coughing has not worsened since being discharged from the hospital last wednesday. He does report generalized abdominal pain with increased distention. He reports healing surgical sites prior surgery. Patient states he received multiple blood transfusions before being discharged from [place] postsurgery. Due to current complaints, CBC, CMP, coags, CT abdomen and pelvis, urinalysis was ordered. Differential diagnoses GI bleed, pneumonia, UTI. concern for active GI bleed due to the multiple blood transfusions. Patient did have extensive surgery after consulting with urology and team at [place]. Denies of any dark tarry stool, hematemesis. Patient vital signs were stable. Heart rate at 98 bpm. normal blood pressure. Afebrile. Hemoglobin was 7 with a white blood count of 18. Platelets 434. Coags within normal limit. Is currently on Lovenox IM daily. Urinalysis was positive for infection. Chest x-ray shows basilar infiltrate worse on the right. CT abdomen and pelvis with contrast unfavorable change. No acute extravasation of contrast seen. Ascities with blood product surrounding the spleen that is also extending to the pelvis. Lower lobe consolidation right greater than the left. Bilateral lower lobe pleural effusions. Concern for an ileus. Hemorrhagic conversion of the patient's known right renal mass with extensive mixed density blood products in the right retroperitoneum. 1 unit of packed red blood cells was ordered due to to the hemoglobin of 7. Patient was given IV Zosyn for potential pneumonia versus UTI. Discussed results with Dr. Bowles urologist that was associated with care patient's right nephrectomy, IVC thrombectomy. Patient had multiple surgeries at [facility] and [place] with reoccurring DVTs. No IVC filter was p laced. Patient required 3 to 4 units of blood post surgery. Continue with anticoagulant Lovenox during that timeframe secondary to the extensive DVT and recommend continue anticoagulation at this time. Dr. Bowles felt the CT scan were inconclusive for active bleed. Recommended observation and if any worsening symptoms to be transferred to [place]. Due to increasing abdominal pain , mild distention concern for acute versus subacute GI bleed. I do feel admission with observation with CT angio abdomen and pelvis tomorrow would be warranted and to monitor hemoglobin. Concerning for the increase abdominal pain and low hemoglobin. Reviewed previous documentation that patient anemia is multifactorial likely secondary to renal cell carcinoma, surgery. Patient h emoglobin May 30 was 11.9 and Today 7.0 I felt patient needed to be at a facility with urology, nephrology or vascular surgery if further intervention is needed. Hospitalist Dr. Riley refused admission here. I did discussed results with urology Dr. Turner and nephrology Dr. Dubose at [facility] who agreed that observation is needed and is willing to evaluate patient at their facility. They did not feel urology or nephrology would need to immediately intervene at this time. Patient was accepted at [facility] for further evaluation. Discussed patient with hospitalist Dr. Lobato who accepts patient. She states they do not currently have vascular surgery but if needing transfer they would be able to provide transfer. They do have vascular surgery access on June 23. Patient is wanting transfer to [facility] versus [place]. Would not accept transfer to [place]. Patient is stable for transfer Impression Primary Impression: Acute blood loss anemia Additional Impressions: Pneumonia UTI (urinary tract infection) Disposition: ADMITTED INPATIENT Condition: Stable Transfer Transfer Reason: Exceeds level of care Time Spoke to Accepting Phy: 21:[address] Lobato accepts Transfer Time: 21:00 Transfer Facility: [facility] Method of Transfer: EMS Departure-Patient Inst. Referrals: SABRINA ANN MD (PCP/Family) Primary Care Physician LISA DIEZ Jun 21, 2022 16:43
[2022-06-21 16:48] LABS: ALBUMIN 2.5 GM/DL (3.2-4.5); POTASSIUM 4.7 MMOL/L (3.6-5.0)
[2022-06-21 16:51] LABS: TOTAL PROTEIN 6.3 GM/DL (6.4-8.2)
[2022-06-21 16:53] LABS: BILIRUBIN,TOTAL 0.5 MG/DL (0.1-1.0)
[2022-06-21 16:54] LABS: CREATININE SERUM 1.08 MG/DL (0.60-1.30)
[2022-06-21 16:57] LABS: MAGNESIUM 1.9 MG/DL (1.6-2.4)
[2022-06-21 17:05] LABS: INR 1.1 (0.8-1.4); PROTHROMBIN TIME PATIENT 14.5 SEC (12.2-14.7)
[2022-06-21 17:39] LABS: BAND NEUTROPHILS 1 %; EOSINOPHILS % (MANUAL) 1 %; HYPOCHROMASIA SLIGHT; LYMPHOCYTES % (MANUAL) 8 %; METAMYELOCYTES % 1 %; MONOCYTES % (MANUAL) 3 %; NEUTROPHILS % (MANUAL) 86 %
[2022-06-21 17:40] LABS: TARGET CELLS SLIGHT; TOXIC GRANULATION/VACUOLAZATIO 1+
[2022-06-21] MEDS ORDERED: NS 100 ML (IVPB) BAG IV ONE (17:45)
[2022-06-21] MEDS ORDERED: IOHEXOL 350 MG/ML 100 ML (OMNIPAQUE 350) VIAL IV ONE (17:45)
[2022-06-21] MEDS ORDERED: HOLD METFORMIN - RECEIVED CONTRAST 20 ML VIAL IV SCH (17:45)
--- NOTE | 2022-06-21 17:58 | Diagnostic Imaging Report ---
INDICATION: Cough. COMPARISONS: 05/30/2022. FINDINGS: Single view chest shows the cardiac contour to be within normal limits. There is developing central venous congestion. There is a right lower lobe consolidation with a small right effusion. Some minimal left medial basilar infiltrates are also present. Slight tortuosity of the thoracic aorta is seen. There is a right-sided PICC line with the tip projected over the mid SVC. Soft tissues and bony thorax are unremarkable. IMPRESSION: 1. Mild to moderate central venous congestion accentuated by the portable technique. 2. Basilar infiltrates, right greater than left. 3. Right-sided PICC line tip is projected over the mid SVC. Dictated by: Dictated on workstation # [id number]
[2022-06-21 18:08] LABS: BILIRUBIN,URINE NEGATIVE (NEGATIVE); CLARITY,URINE CLEAR; COLOR,URINE YELLOW; GLUCOSE, URINE (UA) NEGATIVE (NEGATIVE); KETONES,URINE NEGATIVE (NEGATIVE); LEUKOCYTE ESTERASE ,URINE 1+ (NEGATIVE); NITRITE,URINE NEGATIVE (NEGATIVE); PH,URINE 6.5 (5-9); PROTEIN,URINE NEGATIVE (NEGATIVE)
[2022-06-21 18:24] LABS: WBC,URINE 25-50 /HPF
[2022-06-21 18:25] LABS: BACTERIA,URINE TRACE /HPF; URIC ACID CRYSTALS,URINE MODERATE /LPF
--- NOTE | 2022-06-21 18:56 | Diagnostic Imaging Report ---
PROCEDURE: CT abdomen and pelvis with and without contrast. TECHNIQUE: Precontrast acquisitions were acquired through the abdomen and pelvis. Multiple contiguous axial images were obtained through the abdomen and pelvis after the administration of intravenous contrast. Auto Exposure Controls were utilized during the CT exam to meet ALARA standards for radiation dose reduction. INDICATION: 71-year-old male with right-sided abdominal pain. COMPARISON: 06/01/2022. FINDINGS: Lung bases show development of bilateral lower lobe consolidation with volume loss. There is a moderate size right effusion and a small left effusion, both of which are new. Cardiac contour is normal. Coronary calcifications are present. Liver shows uniform attenuation. Gallbladder shows no evidence of stones, sludge, wall thickening or pericholecystic fluid. Spleen and GE junction are normal. Stomach and duodenal sweep are unremarkable. Pancreas shows atrophy but sharp margins. Adrenals are normal. Patient is known to have a right renal cell carcinoma measuring approximately 10 cm in average diameter. This appears to have had hemorrhagic conversion with large mixed density blood products in the right retroperitoneum. This extends into the right paracolic gutter. Some fluid is seen surrounding the spleen with a mean Hounsfield units of 18. There is normal perfusion of left kidney. There is no hydronephrosis or hydroureter. Bladder is decompressed by a Carlson catheter. Nonopacified loops of small bowel show some fluid-filled loops with air-fluid levels. Large bowel also shows some scattered gas and liquid stool. The descending colon is mostly decompressed. Visualized vasculature shows normal caliber of the aorta, iliac and femoral arteries with normal origin of the visceral arteries. IMPRESSION: 1. Unfavorable change with hemorrhagic conversion of the patient's known right renal mass with extensive mixed density blood products in the right retroperitoneum. No definite active extravasation of contrast is seen at the time of imaging. 2. There is some ascites surrounding the spleen that is also extending into the pelvis. This may be mixed ascites with blood. 3. There is lower lobe atelectatic consolidations, right greater than left, with bilateral lower lobe effusions, right greater than left. 4. Probable ileus rather than obstruction with fluid-filled loops of small bowel with air-fluid levels. Additional nonemergent findings as described above. Dictated by: Dictated on workstation # [id number]
[2022-06-21] MEDS ORDERED: NS IV 500 ML 500 ML IV SCH (20:00)
[2022-06-21] MEDS ORDERED: PIPERACILLIN SODIUM/TAZOBACTAM 4.5 GM in NS (IVPB) 100 ML IV ONE (20:30)
[2022-06-21 20:58] VITALS: BP 123/69
[2022-06-21 21:15] VITALS: BP 128/66
[2022-06-21 21:28] VITALS: BP 126/67
[2022-06-21 21:43] VITALS: BP 116/69
[2022-06-21 21:52] VITALS: BP 116/69
== END 2022-06-21 21:50 | disposition short-term general hospital (02) ==
LOC: EDUNIT# 16:22 → ER 16:23
DX: D62 Acute posthemorrhagic anemia (principal); J18.9 Pneumonia, unspecified organism; N39.0 Urinary tract infection, site not specified; Z86.718 Personal history of other venous thrombosis and embolism; Z79.01 Long term (current) use of anticoagulants
CPT/HCPCS: 71045; 74178; 80053; 81000; 83605; 83690; 83735; 85007; 85027; 85610; 85730; 86850; 86900; 86901; 86920; 87040; 87088; 99285; P9016; 36415

== ENCOUNTER → 2022-06-21 | Outpatient (CLI) | payer MEDICARE ==
[2022-06-21 13:34] LABS: HEMATOCRIT 22 % (40-54); HEMOGLOBIN 7.1 g/dL (13.3-17.7); MEAN CORPUSCULAR HEMOGLOBIN 28 pg (25-34); MEAN CORPUSCULAR HGB CONC 32 g/dL (32-36); MEAN CORPUSCULAR VOLUME 88 fL (80-99); MEAN PLATELET VOLUME 10.6 fL (9.0-12.2); PLATELET COUNT 415 10^3/uL (130-400); WHITE BLOOD COUNT 19.2 10^3/uL (4.3-11.0)
[2022-06-21 13:53] LABS: ALBUMIN 2.4 GM/DL (3.2-4.5); BILIRUBIN,TOTAL 0.4 MG/DL (0.1-1.0); CALCIUM 7.7 MG/DL (8.5-10.1); CREATININE SERUM 1.11 MG/DL (0.60-1.30); POTASSIUM 5.1 MMOL/L (3.6-5.0); TOTAL PROTEIN 5.8 GM/DL (6.4-8.2)
== END ==
PROVIDERS: ATTEND Pediatrics
DX: C64.1 Malignant neoplasm of right kidney, except renal pelvis (principal)
CPT/HCPCS: 80053; 85027

== ENCOUNTER 2023-02-15 08:56 | Emergency (ER) | payer MEDICARE, OTHER ==
[~2023-02-15] VITALS: Ht 172.2 cm; Wt 79.4 kg
[~2023-02-15 08:56] MED LIST changes: +ROPI4TAB40 PO; -ROPI4TAB5 PO
[2023-02-15 09:45] LABS: BASOPHILS # (AUTO) 0.1 10^3/uL (0.0-0.1); BASOPHILS % (AUTO) 2 % (0-10); EOSINOPHILS # (AUTO) 0.3 10^3/uL (0.0-0.3); EOSINOPHILS % (AUTO) 4 % (0-10); HEMATOCRIT 42 % (40-54); HEMOGLOBIN 13.5 g/dL (13.3-17.7); LYMPHOCYTES # (AUTO) 1.4 10^3/uL (1.0-4.0); LYMPHOCYTES % (AUTO) 22 % (12-44); MEAN CORPUSCULAR HEMOGLOBIN 30 pg (25-34); MEAN CORPUSCULAR HGB CONC 33 g/dL (32-36); MEAN CORPUSCULAR VOLUME 91 fL (80-99); MEAN PLATELET VOLUME 10.1 fL (9.0-12.2); MONOCYTES # (AUTO) 0.6 10^3/uL (0.0-1.0); MONOCYTES % (AUTO) 10 % (0-12); NEUTROPHILS # (AUTO) 3.8 10^3/uL (1.8-7.8); NEUTROPHILS % (AUTO) 62 % (42-75); PLATELET COUNT 196 10^3/uL (130-400); WHITE BLOOD COUNT 6.1 10^3/uL (4.3-11.0)
[2023-02-15 09:58] LABS: BILIRUBIN,URINE NEGATIVE (NEGATIVE); CLARITY,URINE CLOUDY; COLOR,URINE ORANGE; GLUCOSE, URINE (UA) NEGATIVE (NEGATIVE); KETONES,URINE NEGATIVE (NEGATIVE); NITRITE,URINE NEGATIVE (NEGATIVE); PH,URINE 6.5 (5-9); PROTEIN,URINE NEGATIVE (NEGATIVE)
[2023-02-15 09:58] LABS: ALBUMIN 4.1 GM/DL (3.2-4.5); POTASSIUM 4.3 MMOL/L (3.6-5.0)
[2023-02-15 09:59] LABS: BACTERIA,URINE TRACE /HPF; LEUKOCYTE ESTERASE ,URINE NEGATIVE (NEGATIVE); RBC,URINE TNTC /HPF; SQUAMOUS EPITHELIAL CELL,UR RARE /HPF; WBC,URINE RARE /HPF
[2023-02-15 10:00] LABS: CALCIUM 9.2 MG/DL (8.5-10.1)
[2023-02-15 10:01] LABS: TOTAL PROTEIN 7.4 GM/DL (6.4-8.2)
[2023-02-15 10:03] LABS: BILIRUBIN,TOTAL 0.6 MG/DL (0.1-1.0)
[2023-02-15 10:04] LABS: CREATININE SERUM 1.49 MG/DL (0.60-1.30)
[2023-02-15] MEDS ORDERED: NS IV 1000 ML 1,000 ML IV SCH (10:15)
--- NOTE | 2023-02-15 10:24 | ED GU-Male ---
General Chief Complaint: - Reproductive Stated Complaint: BLOOD IN URINE Nursing Triage Note: PATIENT C/O BLOOD IN HIS URINE AND STATES THIS STARTED YESTERDAY. PATIENT STATES HIS URINE WAS RED IN THE AM AND THEN STARTED TO CLEAR WITH BECOMING RED AGAIN LAST NIGHT. PATIENT STATES HE WAS ON XARELTO AND STATES HE STOPPED TAKING THAT YESTERDAY. PATIENT STATES HE DOES HAVE A HX. OF KIDNEY CA AND STATES HE IS CURRENTLY DOING DOING A 6 WK INJECTION FOR TX. PATIENT DENIES ANY NEW FLANK PAIN OR NEW PAIN ANYWHERE ELSE. Source: patient, spouse History of Present Illness Date Seen by Provider: Feb 15, 2023 Time Seen by Provider: 09:20 Initial Comments PT ARRIVES VIA POV FROM HOME WITH Allergies and Home Medications Allergies Coded Allergies: No Known Drug Allergies (Unverified , 03/20/11) Patient Home Medication List Acetaminophen (Tylenol) 325 Mg Tablet, 975 MG PO Q8H PRN for PAIN-MILD (1-4), (Reported) Entered as Reported by: DARIN SAMAYOA on 06/01/22 1141 Bumetanide (Bumetanide) 1 Mg Tablet, 1 MG PO DAILY, (Reported) Entered as Reported by: DARIN SAMAYOA on 06/01/22 1132 Diclofenac Sodium (Voltaren Arthritis Pain) 1 % Gel..gram., 1 APPLIC TP DAILY PRN for PAIN-MILD (1-4), (Reported) Entered as Reported by: DARIN SAMAYOA on 06/01/22 1139 Fentanyl (Fentanyl Patch 75MCG) 75 Mcg/Hour Patch.td72, 75 MCG TD Q72H, (Reported) Entered as Reported by: DARIN SAMAYOA on 06/01/22 1138 Hydrocodone/Acetaminophen (Hydrocodone-Acetamin 10-325 mg) 10 Mg-325 Mg Tablet, 1 EACH PO Q4H PRN for PAIN-MODERATE (5-7) Prescribed by: RHEA RILEY on 06/01/22 1227 Losartan Potassium (Losartan Potassium) 25 Mg Tablet, 25 MG PO DAILY, (Reported) Entered as Reported by: DARIN SAMAYOA on 06/01/22 1132 Melatonin (Melatonin) 3 Mg Tablet, 6 MG PO HS, (Reported) Entered as Reported by: DARIN SAMAYOA on 06/01/22 1140 Rivaroxaban (Xarelto Starter Pack) 15 Mg (42)- 20 Mg (9) Tab.ds.pk, 1 EACH PO UD Prescribed by: RHEA RILEY on 06/01/22 1226 Ropinirole HCl (Ropinirole HCl) 4 Mg Tablet, 8 MG PO HS, (Reported) Entered as Reported by: DARIN SAMAYOA on 06/01/22 1132 Past Ornkrsg-Ducsab-Uddcnt Hx Patient Social History Tobacco Use?: No Use of E-Cig and/or Vaping dev: No Substance use?: No Alcohol Use?: No Immunizations Up To Date First/Initial COVID19 Vaccinat: 06/01 Second COVID19 Vaccination Mina: 06/27 Third COVID19 Vaccination Date: 01/24 Past Medical History Surgery/Hospitalization HX: KIDNEY CA, BLOOD CLOTS Surgeries: Yes Orthopedic Respiratory: No Cardiac: Yes Chronic Edema/Swelling, Hypertension Neurological: Yes Neuropathy, Parkinson's Disease Musculoskeletal: Yes Back Injury, Chronic Back Pain Endocrine: No Hearing Impairment: Hard of Hearing Family Medical History No Pertinent Family Hx Physical Exam Vital Signs Vital Signs - First Documented 02/15/23 09:17 Temp 35.1 Pulse 51 Resp 16 B/P (MAP) 165/91 (115) O2 Delivery Room Air Capillary Refill : Height, Weight, BMI Height: 5'8.00" Weight: 220lbs. 0.0oz. [id number]; 26.00 BMI Method: Progress/Results/Core Measures Suspected Sepsis SIRS Temperature: Pulse: 51 Respiratory Rate: 16 Laboratory Tests 02/15/23 09:32: White Blood Count 6.1 Blood Pressure 165 /91 Mean: 115 Laboratory Tests 02/15/23 09:32: Creatinine 1.49H, INR Comment 1.0, Platelet Count 196, Total Bilirubin 0.6 Results/Orders Lab Results Laboratory Tests Test 02/15/23 09:32 02/15/23 09:39 Range/Units White Blood Count 6.1 4.3-11.0 10^3/uL Red Blood Count 4.57 4.30-5.52 10^6/uL Hemoglobin 13.5 13.3-17.7 g/dL Hematocrit 42 40-54 % Mean Corpuscular Volume 91 80-99 fL Mean Corpuscular Hemoglobin 30 25-34 pg Mean Corpuscular Hemoglobin Concent 33 32-36 g/dL Red Cell Distribution Width 13.0 10.0-14.5 % Platelet Count 196 130-400 10^3/uL Mean Platelet Volume 10.1 9.0-12.2 fL Immature Granulocyte % (Auto) 0 % Neutrophils (%) (Auto) 62 42-75 % Lymphocytes (%) (Auto) 22 12-44 % Monocytes (%) (Auto) 10 0-12 % Eosinophils (%) (Auto) 4 0-10 % Basophils (%) (Auto) 2 0-10 % Neutrophils # (Auto) 3.8 1.8-7.8 10^3/uL Lymphocytes # (Auto) 1.4 1.0-4.0 10^3/uL Monocytes # (Auto) 0.6 0.0-1.0 10^3/uL Eosinophils # (Auto) 0.3 0.0-0.3 10^3/uL Basophils # (Auto) 0.1 0.0-0.1 10^3/uL Immature Granulocyte # (Auto) 0.0 0.0-0.1 10^3/uL Prothrombin Time 14.0 12.2-14.7 SEC INR Comment 1.0 0.8-1.4 Activated Partial Thromboplast Time 40 H 24-35 SEC Sodium Level 139 135-145 MMOL/L Potassium Level 4.3 3.6-5.0 MMOL/L Chloride Level 103 98-107 MMOL/L Carbon Dioxide Level 30 21-32 MMOL/L Anion Gap 6 5-14 MMOL/L Blood Urea Nitrogen 18 7-18 MG/DL Creatinine 1.49 H 0.60-1.30 MG/DL Estimat Glomerular Filtration Rate 50 BUN/Creatinine Ratio 12 Glucose Level 105 70-105 MG/DL Calcium Level 9.2 8.5-10.1 MG/DL Corrected Calcium 9.1 8.5-10.1 MG/DL Total Bilirubin 0.6 0.1-1.0 MG/DL Aspartate Amino Transf (AST/SGOT) 16 5-34 U/L Alanine Aminotransferase (ALT/SGPT) 14 0-55 U/L Alkaline Phosphatase 68 40-136 U/L Total Protein 7.4 6.4-8.2 GM/DL Albumin 4.1 3.2-4.5 GM/DL Urine Color ORANGE Urine Clarity CLOUDY Urine pH 6.5 5-9 Urine Specific [place] 1.015 L 1.016-1.022 Urine Protein NEGATIVE NEGATIVE Urine Glucose (UA) NEGATIVE NEGATIVE Urine Ketones NEGATIVE NEGATIVE Urine Nitrite NEGATIVE NEGATIVE Urine Bilirubin NEGATIVE NEGATIVE Urine Urobilinogen 0.2 < = 1.0 MG/DL Urine Leukocyte Esterase NEGATIVE NEGATIVE Urine RBC (Auto) 3+ H NEGATIVE Urine RBC TNTC H /HPF Urine WBC RARE /HPF Urine Squamous Epithelial Cells RARE /HPF Urine Crystals NONE /LPF Urine Bacteria TRACE /HPF Urine Casts NONE /LPF Urine Mucus NEGATIVE /LPF Urine Culture Indicated NO My Orders Orders - KAREEM DIAZ DO Ed Iv/Invasive Line Start (02/15/23 09:21) Monitor-Rhythm Ecg Trace Only (02/15/23 09:21) Cbc And Automated Diff (02/15/23 09:21) Comprehensive Metabolic Panel (02/15/23 09:21) Ua Culture If Indicated (02/15/23 09:21) Protime With Inr (02/15/23 09:21) Partial Thromboplastin Time (02/15/23 09:21) Ed Iv/Invasive Line Start (02/15/23 10:12) Ns Iv 1000 Ml (Ns Iv 1000 Ml) (02/15/23 10:15) Ct Abdomen/Pelvis W (02/15/23 10:12) Iohexol Injection (Omnipaque 350 Mg/Ml 1 (02/15/23 10:30) Received Contrast (Hold Metformin- Contr (02/15/23 10:30) Ns (Ivpb) 100 Ml (Sodium Chloride 0.9% 1 (02/15/23 10:30) Medications Given in ED Current Medications Medications Dose Ordered Sig/Keshawn Route Start Time Stop Time Status Last Admin Dose Admin Iohexol 100 ml ONCE ONCE IV 02/15/23 10:30 02/15/23 10:31 DC 02/15/23 10:44 60 ML Sodium Chloride 100 ml ONCE ONCE IV 02/15/23 10:30 02/15/23 10:31 DC 02/15/23 10:44 80 ML Vital Signs/I&O 02/15/23 09:17 Temp 35.1 Pulse 51 Resp 16 B/P (MAP) 165/91 (115) O2 Delivery Room Air Capillary Refill : Blood Pressure Mean: 115 Progress Note : Progress Note VOIDED JUST PRIOR TO DISMISSAL--280 ML CLEAR YELLOW , WITH VERY FAINT TINGE OF PINK Departure Impression Primary Impression: Hematuria Additional Impressions: XARELTO THERAPY Hx of renal cell cancer Disposition: HOME, SELF-CARE Condition: Stable Departure-Patient Inst. Decision time for Depature: 11:30 Referrals: Luz MCKEON MD, CHAD C MD (PCP/Family) Primary Care Physician Patient Instructions: Blood in Urine (Hematuria), Adult ED Add. Discharge Instructions: RESTART XARELTO TOMORROW LOTS OF FLUIDS FOLLOW UP WITH DR. MCKEON, UROLOGIST, FOR FURTHER CARE--CALL TODAY TO SCHEDULE AN APPOINTMENT YOU MAY ALSO FOLLOW UP WITH DR. ANN THIS WEEK FOR FURTHER CARE--CALL TODAY TO SCHEDULE AN APPOINTMENT All discharge instructions reviewed with patient and/or family. Voiced understanding. KAREEM DIAZ DO Feb 15, 2023 10:24
[2023-02-15] MEDS ORDERED: NS 100 ML (IVPB) BAG IV ONE (10:30)
[2023-02-15] MEDS ORDERED: IOHEXOL 350 MG/ML 100 ML (OMNIPAQUE 350) VIAL IV ONE (10:30)
[2023-02-15] MEDS ORDERED: HOLD METFORMIN - RECEIVED CONTRAST 20 ML VIAL IV SCH (10:30)
--- NOTE | 2023-02-15 11:06 | Diagnostic Imaging Report ---
PROCEDURE: CT abdomen and pelvis with contrast. TECHNIQUE: Multiple contiguous axial images were obtained through the abdomen and pelvis after administration of intravenous contrast. Auto Exposure Controls were utilized during the CT exam to meet ALARA standards for radiation dose reduction. All CT scans use one or more of the following dose optimizing techniques: Automated exposure control, MA and/or KvP adjustment based on patient size and exam type or iterative reconstruction. INDICATION: Hematuria. History of kidney cancer. COMPARISON: 06/21/2022. FINDINGS: Included portions of the lung bases show 3 mm micronodular density within the inferior lingula of the left upper lobe (image 26, series 2). Corresponding micronodule cannot be identified on recent prior exams. CT ABDOMEN: Right kidney is surgically absent. Loculated fluid collection is identified within the surgical bed and measures 5.8 x 3.5 cm. This is felt to represent expected interval evolution of previously described hematoma. No free fluid or free air is seen within the abdomen or pelvis. Right kidney has a normal CT appearance. Right adrenal gland is not well visualized. Left adrenal gland, spleen, pancreas, and liver have a normal CT appearance. Small bowel loops are nondilated. Normal appendix is identified. Moderate air and stool are scattered throughout the colon. No abnormal mesenteric or retroperitoneal adenopathy is seen. Osseous structures show no acute abnormalities. CT PELVIS: Urinary bladder is unopacified. No calculi are seen within the urinary bladder. There is no loculated fluid collection, free fluid, or free air within the pelvis. No abnormal lymph nodes are seen. Osseous structures show no acute abnormalities. IMPRESSION: 1. Small residual loculated fluid collection remains within the surgical bed of the right kidney. This is not unexpected given the large postsurgical hematoma seen on prior study. 2. No new loculated fluid collection, free fluid, or free air is seen. 3. Small micronodule within the included portions of the inferior lingula of the left upper lobe. Follow-up is advised. 4. Moderate colonic air and stool. Please correlate for constipation. Dictated by: Dictated on workstation # [id number]
[2023-02-15 12:00] VITALS: BP 152/73
== END 2023-02-15 12:00 | disposition home or self-care (01) ==
LOC: EDUNIT# 08:56 → ER 08:58
DX: R31.9 Hematuria, unspecified (principal); Z85.528 Personal history of other malignant neoplasm of kidney; Z79.01 Long term (current) use of anticoagulants
CPT/HCPCS: 36415; 74177; 80053; 81000; 85025; 85610; 85730; 93041; 96360

== ENCOUNTER 2023-02-17 06:09 | Outpatient (CLI) | payer MEDICARE, OTHER ==
[~2023-02-17] VITALS: Ht 172.7 cm; Wt 79.5 kg
[2023-02-17] MEDS ORDERED: RIVA20TA PO (11:28)
[2023-02-17] MEDS ORDERED: POLY17PO6 PO (11:28)
[2023-02-17] MEDS ORDERED: PEMB100V IV (11:28)
[2023-02-17] MEDS ORDERED: GUAI1TBM19 PO (11:28)
[2023-02-17] MEDS ORDERED: CALC-666 PO (11:28)
[2023-02-17] MEDS ORDERED: MTP25TSR PO (11:28)
[2023-02-17] MEDS ORDERED: OMEP20CA18 PO (11:28)
[2023-02-17] MEDS ORDERED: TMSL.4C PO (11:28)
[2023-02-17] MEDS ORDERED: FENT1PAT11 TD (11:28)
[2023-02-17] MEDS ORDERED: FLUT15.845 NS (11:28)
== END 2023-02-17 11:57 | disposition home or self-care (01) ==
LOC: PREOP 06:09
PROVIDERS: ATTEND Specialist
DX: Z01.818 Encounter for other preprocedural examination (principal)

== ENCOUNTER 2023-02-23 08:27 | Day surgery (SDC) | payer MEDICARE, OTHER ==
[2023-02-23] VITALS (13 sets, daily range): BP systolic 150–194; BP diastolic 81–135
[~2023-02-23] VITALS: Ht 172.7 cm; Wt 79.5 kg
[~2023-02-23 08:27] MED LIST changes: +CALC-666 PO; +FENT1PAT11 TD; +FLUT15.845 NS; +GUAI1TBM19 PO; +MTP25TSR PO; +OMEP20CA18 PO; +PEMB100V IV; +POLY17PO6 PO; +RIVA20TA PO; +TMSL.4C PO
[2023-02-23] MEDS ORDERED: LACTATED RINGERS 1,000 ML 1,000 ML IV PRN (08:45)
--- NOTE | 2023-02-23 09:48 | Progress Note-Pre Operative ---
Pre-Operative Progress Note Date of Available H&P: Feb 17, 2023 Date H&P Reviewed: Feb 23, 2023 Time H&P Reviewed: 09:30 History & Physical: H&P Reviewed, No changes noted Pre-Operative Diagnosis: Gross hematuria Luz MCKEON MD Feb 23, 2023 09:48
[2023-02-23] MEDS ORDERED: ONDANSETRON INJECTION 4 MG/2 ML (SDV) ONE (09:59)
[2023-02-23] MEDS ORDERED: fentaNYL INJECTION 100 MCG/2 ML VIAL ONE (09:59)
[2023-02-23] MEDS ORDERED: LIDOCAINE PF 2% 5 ML VIAL ONE (09:59)
[2023-02-23] MEDS ORDERED: proPOfol INJECTION 200 MG/20 ML VIAL IV ONE (09:59)
[2023-02-23] MEDS ORDERED: dexAMETHasone INJ 10 MG/ML 1 ML VIAL ONE (10:26)
[2023-02-23] MEDS ORDERED: SEVOFLURANE (ULTANE) 15 ML INHAL SOLN ONE ×2 (10:44→10:46)
--- NOTE | 2023-02-23 10:49 | Progress Note-Post Operative ---
Post-Operative Progess Note Surgeon (s)/Spring Machine Operator (s) Surgeon Luz MCKEON MD Spring Machine Operator n/a Pre-Operative Diagnosis Gross hematuria Post-Operative Diagnosis Bulbar urethral stricture Post-Op Procedure Note Date of Procedure: Feb 23, 2023 Name of Procedure Performed: Cystoscopy, dilation bulbar urethral stricture and barbotage urine specimen for cytology Drains: 20 Yemeni coud Carlson catheter Description & Findings Description and Findings: Diaphoresis bulbar urethral stricture dilated with Villa sounds. Normal bladder, no tumors or stones seen Anesthesia Type General Estimated Blood Loss minimal Packing none. Specimen(s) collected/removed Barbotage urine specimen for cytology Luz MCKEON MD Feb 23, 2023 10:48
--- NOTE | 2023-02-23 10:51 | Discharge Inst-Urology ---
Discharge Inst-Urology Patient Instructions/Follow Up Plan/Assessment/Instructions Please make appointment to been seen in office in 1 week for catheter removal. Increase oral fluids for 48 hours and then as needed. Diet and Activity as tolerated. If questions or concerns contact your physician Or seek help at emergency department. Luz MCKEON MD Feb 23, 2023 10:51
[2023-02-23] MEDS ORDERED: hydrALAZINE INJECTION 20 MG/ML VIAL ONE (11:46)
[2023-02-23] MEDS ORDERED: hydrALAZINE INJECTION 20 MG/ML VIAL IV ONE (12:00)
--- NOTE | 2023-02-23 18:46 | OPERATIVE REPORT ---
DATE OF SERVICE: 02/23/2023 PREOPERATIVE DIAGNOSIS: Gross hematuria. POSTOPERATIVE DIAGNOSES: Gross hematuria, bulbourethral stricture. PROCEDURE PERFORMED: Cystoscopy, stricture dilation, catheter placement, barbotage urine obtained for cytology. DRAINS: A 20 Beninese Carlson catheter. INDICATIONS: Please see history and physical. DESCRIPTION OF PROCEDURE: After informed consent was obtained, general anesthetic was administered. The patient received IV Levaquin. He was then prepped and draped in dorsal lithotomy position. Cystoscopy with a 23-Beninese cystoscope sheath was performed. Distal urethra was unremarkable. At the bulbar urethra, there was a diaphanous urethral stricture. Sensor guidewire was passed through the stricture. Villa sounds were then used to dilate the stricture from 20-26 Beninese. The cystoscope was then reinserted. There was some oozing from the stricture site, but the stricture was wide open. Prostatic urethra showed normal urethral membranous urethra and trilobar enlargement of the prostate. Panendoscopy of bladder with 30 and 70 degree lens revealed normal ureteral orifices. No bladder tumors or stones. Barbotage urine was obtained for cytology. A 20-Beninese Carlson catheter was then placed. Efflux was clear. The patient was then taken to recovery room. Plan will be to discharge him home and follow up in the office in 1 week for catheter removal. He will remain on light activity. He will be sent home on Keflex for 3 days. Job ID: [id number] DocumentID: [id number] Dictated Date: 02/23/2023 11:08:34 Loading Unit Operator Crimping Date: 02/23/2023 18:45:00 Dictated By: Wilbur MCKEON MD
[2023-02-24] MEDS ORDERED: CEPHALEXIN 250 MG CAPSULE PO SCH (08:00)
== END 2023-02-23 13:15 | disposition home or self-care (01) ==
LOC: SDC 08:27
PROVIDERS: ATTEND Specialist
DX: N35.912 Unspecified bulbous urethral stricture, male (principal); R31.0 Gross hematuria; C64.9 Malignant neoplasm of unspecified kidney, except renal pelvis
CPT/HCPCS: 52281; 87081; C1769